=== PATIENT | female | born 1955 | race Caucasian/White ===

== ENCOUNTER 2016-10-22 10:01 | Emergency (ER) | payer BC ==
--- NOTE | 2016-10-22 11:09 | UC ---
Hip/Pelvis Pain - HPI Summary HPI Summary: Fell on the ice this morning landing on knees also has some left hip pain - History Of Current Complaint Chief Complaint: UCLowerExtremity Stated Complaint: FELL-HIP COMPLAINT Time Seen by Provider: 10/22/16 11:02 Hx Obtained From: Patient ?: No Mechanism Of Injury: fall Onset/Duration: Sudden Onset, Lasting Hours, Still Present Timing: Constant Severity Initially: Moderate Severity Currently: Moderate Pain Intensity: 3 Pain Scale Used: 0-10 Numeric Location: Discrete At: - both knees and left hip Character Of Pain: Aching Aggravating Factor(s): Movement Alleviating Factor(s): Rest Associated Signs And Symptoms: Positive: Swelling, Bruising, Knee Pain - Allergies/Home Medications Allergies/Adverse Reactions: Allergies Allergy/AdvReac Type Severity Reaction Status Date / Time No Known Allergies Allergy Verified 06/29/16 08:14 Home Medications: Home Medications Calcium Carbonate CHEW TAB* [Tums*] 500 mg PO QPM 10/22/16 [History Confirmed ] amLODIPine TAB* [Norvasc TAB*] 2 mg PO DAILY 10/22/16 [History Confirmed ] PMH/Surg Hx/FS Hx/Imm Hx Previously Healthy: No Endocrine History Of: Denies: Diabetes Cardiovascular History Of: Reports: Hypertension Denies: Pacemaker/ICD Respiratory History Of: Reports: Bronchitis - LAST TIME 1990 Denies: Asthma GI/ History Of: Denies: Renal Disease Cancer History Of: Denies: Breast Cancer - Surgical History Surgical History: Yes Surgery Procedure, Year, and Place: ,LEFT SHOULDER re-location with screw, right wrist surgery, LEFT HIP, THYROID - Family History Known Family History: Positive: None - Social History Occupation: Employed Full-time Lives: With Family Alcohol Use: None Alcohol Amount: HOLIDAYS Substance Use Type: None Smoking Status (MU): Never Smoked Tobacco Have You Smoked in the Last Year: No - Immunization History Most Recent Influenza Vaccination: 06/2016 Most Recent Tetanus Shot: 2013 Most Recent Pneumonia Vaccination: NEVER Review of Systems Constitutional: Negative Skin: Bruising - knees Eyes: Negative ENT: Negative Respiratory: Negative Cardiovascular: Negative Gastrointestinal: Negative Genitourinary: Negative Motor: Negative Neurovascular: Negative Musculoskeletal: Negative Neurological: Negative Psychological: Negative All Other Systems Reviewed And Are Negative: Yes Physical Exam Triage Information Reviewed: Yes Appearance: Well-Appearing, No Pain Distress, Well-Nourished Vital Signs: Initial Vital Signs Temp 99.1 F 10/22/16 10:45 Pulse 83 10/22/16 10:45 Resp 18 10/22/16 10:45 BP 144/92 10/22/16 10:45 Pulse Ox 97 10/22/16 10:45 Vital Signs Reviewed: Yes Eye Exam: Normal Eyes: Positive: Conjunctiva Clear ENT Exam: Normal ENT: Positive: Normal ENT inspection, Hearing grossly normal. Negative: Nasal congestion, Nasal drainage, Trismus, Muffled/hoarse voice Dental Exam: Normal Neck exam: Normal Neck: Positive: Supple, Nontender, No Lymphadenopathy Respiratory Exam: Normal Respiratory: Positive: Chest non-tender, Lungs clear, Normal breath sounds, No respiratory distress, No accessory muscle use Cardiovascular Exam: Normal Cardiovascular: Positive: RRR, No Murmur, Pulses Normal, Brisk Capillary Refill Musculoskeletal Exam: Normal Musculoskeletal: Positive: Strength Intact, ROM Intact, Edema @ - knees Neurological Exam: Normal Neurological: Positive: Alert, Muscle Tone Normal Psychological Exam: Normal Psychological: Positive: Normal Response To Family Skin: Positive: Other - abrasion on knee (tetnus up to date) Diagnostics - Radiology No standard instances Xray Interpretation: No Acute Changes Radiology Interpretation Completed By: Radiologist Hip Injury Course/Dx - Course Course Of Treatment: rest, ice, ibuprofen, eva wound care follow with Dr. Dawson as needed - Differential Dx/Diagnosis Differential Diagnosis/HQI/PQRI: Contusion, Fracture, Hematoma, Sprain, Strain Provider Diagnoses: Bilateral knee contusions, Left hip pain s/p replacement Discharge - Discharge Plan Condition: Stable Disposition: HOME Patient Education Materials: Osteoarthritis (ED), Contusion in Adults (ED), Abrasion (ED), Ice Pack Application (ED) Referrals: Manjula Dawson MD [Medical Doctor] - If Needed Cameron Kent MD [Primary Care Provider] -
[2016-10-22 11:15] VITALS: BP 135/92
--- NOTE | 2016-10-22 11:55 | RAD ---
HISTORY: Fall, bruising, pain to the left knee and to the right knee COMPARISONS: None VIEWS: 7, Frontal, lateral, and oblique views of the left knee and of the right knee with axial views of both knees FINDINGS: Right: BONE DENSITY: There is diffuse osteopenia. BONES: There is no displaced fracture. JOINTS: There is mild to moderate tricompartmental osteoarthritis. There is no suprapatellar joint effusion or lipohemarthrosis. ALIGNMENT: There is no dislocation. The alignment is anatomic. SOFT TISSUES: Unremarkable. Left: BONE DENSITY: There is diffuse osteopenia. BONES: There is no displaced fracture. JOINTS: There is mild to moderate tricompartmental osteoarthritis. There is no suprapatellar joint effusion or lipohemarthrosis. ALIGNMENT: There is no dislocation. The alignment is anatomic. SOFT TISSUES: Unremarkable. OTHER FINDINGS: None. IMPRESSION: OSTEOPENIA. OSTEOARTHRITIS. NO ACUTE OSSEOUS INJURY BILATERALLY. IF SYMPTOMS PERSIST, RECOMMEND REPEAT IMAGING.
--- NOTE | 2016-10-22 11:57 | RAD ---
HISTORY: Fall, bruising, pain to the left hip COMPARISONS: September 20, 2016 VIEWS: 3, Frontal view of the pelvis with frontal and frog-leg views of the left hip FINDINGS: BONE DENSITY: There is diffuse osteopenia. BONES: The patient is status post left hip arthroplasty. There is no hardware failure or osteolysis. JOINTS: The patient is status post left hip arthroplasty. There is advanced osteoarthritis of the right hip. ALIGNMENT: There is no dislocation. SOFT TISSUES: Unremarkable. OTHER FINDINGS: None. IMPRESSION: STATUS POST LEFT HIP ARTHROPLASTY
== END 2016-10-22 12:10 | disposition home or self-care (01) ==
LOC: UCEAST 10:01
DX: S70.02XA Contusion of left hip, initial encounter (principal); W00.0XXA Fall on same level due to ice and snow, initial encounter; I10 Essential (primary) hypertension
CPT/HCPCS: 99211; G0463

== ENCOUNTER 2017-10-18 07:01 | Inpatient (IN) | payer BC ==
--- NOTE | 2017-10-07 17:28 | HP ---
HISTORY AND PHYSICAL: DATE OF ADMISSION/SURGERY: 10/18/17 DATE OF OFFICE VISIT: 10/07/17 SURGEON: Manjula Dawson MD * (DICTATED BY [facility]) PROCEDURE: Right total hip arthroplasty. CHIEF COMPLAINT: Right hip pain. HISTORY OF PRESENT ILLNESS: Ms. Turk is a 62-year-old female with complaints of right hip pain secondary to end-stage osteoarthritis. She has failed conservative management, elected to proceed with a right total arthroplasty which is scheduled for 10/18/[address] Dawson. PAST MEDICAL HISTORY: Hypertension, high cholesterol. PAST SURGICAL HISTORY: Left shoulder rotator cuff repair, , ORIF of the right wrist, parathyroidectomy, and a left total hip arthroplasty. CURRENT MEDICATIONS: 1. Amlodipine 2.5 mg daily. 2. VESIcare 10 mg daily. 3. Vitamin C. 4. Krill oil. 5. Garlic. 6. Magnesium. 7. Biotin. 8. Hazen. ALLERGIES: None. FAMILY HISTORY: Heart disease, diabetes, and melanoma. SOCIAL HISTORY: She is a 62-year-old female. She lives with her . She does not smoke, use drugs. She uses occasional alcohol. REVIEW OF SYSTEMS: A complete 14-point review of systems was reviewed with the patient and it was all negative or noncontributory. PHYSICAL EXAMINATION GENERAL: She is well-developed, well-nourished, in no acute distress. VITAL SIGNS: She stands 6 feet tall, weighs 190 pounds. Her blood pressure is 138/82, her heart rate 71. HEENT: Normocephalic, atraumatic. NECK: Supple. No palpable lymph nodes. PULMONARY: Lungs are clear to auscultation bilaterally. CARDIO: Regular rate and rhythm. Strong S1 and S2. ABDOMEN: Soft, nontender, nondistended. NEUROLOGIC: She is alert and oriented x3. Cranial nerves II through XII are intact. MUSCULOSKELETAL: Right lower extremity, skin is intact. There are no open wounds or abrasions. She walks with an antalgic-type gait, favoring her right hip. She has decreased internal and external rotation of the right hip. She has 2+ dorsalis pedis pulses, intact sensation, and her lower extremity muscular group strengths are intact at 5/5. ASSESSMENT AND PLAN: Ms. Turk is a 62-year-old female with continued complaints of right hip pain secondary to advanced osteoarthritis. She has failed conservative management and elected to proceed with a right total hip arthroplasty, which is scheduled for 10/18/[address] Dawson discussed the risks and benefits of the surgery at today's visit and all of her questions were answered. Hazen, Colace, and Coumadin were sent to her pharmacy for postoperative pain control and DVT prophylaxis. She will follow up with Dr. Dawson 2 weeks after the surgery. [facility] [id number]/[facility] #: [id number] PINKY
[~2017-10-18 07:01] MED LIST: Buffered Lidocaine 0.9% SYRIN* 5 ML/SYR SYRINGE INTRADERM ONE; DiMENhydriNATE IV* 50 MG/ML VIAL IV PUSH PRN; Famotidine IV* 10 MG/ML 2 ML (20 mg) IV ONE; Gabapentin CAP(*) 300 MG PO ONE; Morphine INJ* 2 MG/ML 1 ML CARPUJECT IV PRN; Naloxone* 0.4 MG/ML 1 ML VIAL IV PRN; PROCHLORPERAZINE INJ 5 MG/ML 2 ML VIAL IV PRN; Scopolamine 1.5 mg* PATCH TRANSDERM ONE; fentaNYL* 50 MCG/ML 2 ML VIAL (100 MCG VIAL) IV PRN
--- OUTSIDE RECORDS SUMMARY | 2017-10-18 07:06 | XMS REPORT ---
:1955 External Reference #:[id number] Author Organization [facility] Address [address] [address] Phone [phone] Care Team Providers Name Role Phone Cameron Kent MD Primary Care Physician Unavailable Payers Type Date Identification Numbers Payment Provider Subscriber Commercial Effective: Policy Number: BS [employer]ets Christopher Kruse 2011 [id number] PayID: [id number] [address] [address] [place] [address] Problems Date Description Provider Status Onset: 07/22/2014 Closed Colles' fracture Fernando West M.D. Active Onset: 07/22/2014 Shoulder joint pain Fernando West M.D. Active Onset: 07/22/2014 Closed anterior dislocation of Fernando West M.D. Active humerus Onset: 07/22/2014 Disorder of shoulder Fernando West M.D. Active Onset: 07/22/2014 Disorder of shoulder Fernando West M.D. Active Onset: 08/19/2014 Closed fracture of distal end of Fernando West M.D. Active radius Onset: 08/19/2014 Fernando West M.D. 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 Active thigh Onset: 09/30/2014 Recurrent dislocation of shoulder Fernando West M.D. Active region Onset: 09/30/2014 Full thickness rotator cuff tear Fernando West M.D. Active Onset: 09/30/2014 Sprain of shoulder and upper arm Fernando West M.D. Active Onset: 09/09/2014 Carbuncle of upper arm and forearm Fernando West M.D. 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 Social History Type Date Description Comments Smoking Patient has never smoked Allergies, Adverse Reactions, Alerts Date Description Reaction Status Severity Comments 06/18/2014 NKDA active Medications Medication Date Status Form Strength Qnty SIG Indications Ordering Provider Hydrocodone-Caden 08/26/ Active Tablets 5-325mg 90tabs 1 or 2 Z96.642 Manjula taminophen 2016 tabs by Christopher Dawson mouth every 4-6 hours as needed for post- op pain Amlodipine 00/ Active 2.5mg Unknown Besylate 0000 Vesicare / Active 10mg Unknown 0000 Vitamin C 00/ Active 1000 Unknown 0000 Krill Oil / Active Capsules 350mg once a day Unknown 0000 Garlic 00/ Active Unknown 0000 Magnesium 00/ Active Tablets 400mg 1 by mouth Unknown 0000 every day Biotin 00/ Active Unknown 0000 Azithromycin 0000/ Active Tablets 250mg Shallish, 0000 MD Cameron Colace /12/ Hx Capsules 100mg 60caps 1-2 tab by Manjula 2015 - mouth Christopher Dawson 09/05/ twice a 2017 day as needed Coumadin 12/ Hx Tablets 2mg 60tabs take 1-3 Manjula 2015 - tabs by Christopher Dawson 08/08/ mouth at 5 2015 at night as directed Percocet 12/ Hx Tablets 5-325mg 90tabs 1-2 tabs Manjula 2015 - by mouth Christopher Dawson 09/05/ q8 as 2017 needed pain Naproxen 04/05/ Hx Tablets 500mg 60tabs 1 tablet Eugenia 2015 - by mouth MARILEE Lopez 08/08/ with food 2015 twice daily. Oxycodone-Aceta 08/26/ Hx Tablets 5-325mg 90tabs one to two Jimbo anson 2014 - tabs by Cheikh, 01/26/ mouth Christopher 2016 every 4-6 hours as needed for pain Fosamax 05/20/ Tablets 70mg Other 2014 - Ordering 2015 Percocet /00/ Hx Unknown - 2013 Ibuprofen / Hx Unknown - 2016 Vitamin D-3 / Hx Unknown 2016 Amoxicillin / Hx Unknown - 2014 Bactrim DS / Hx Unknown - 2015 Vital Signs Date Vital Result Comment 10/07/2017 Height 72 inches 6'0" Weight 192.00 lb BP Systolic 138 mmHg BP Diastolic 82 mmHg Respiratory Rate 15 /min Pain Level 7 BMI (Body Mass Index) 26.0 kg/m2 08/26/2017 Height 72 inches 6'0" Weight 90.00 lb Heart Rate 96 /min BP Systolic 146 mmHg BP Diastolic 80 mmHg BMI (Body Mass Index) 12.2 kg/m2 01/03/2017 Height 72 inches 6'0" Weight 194.00 lb Heart Rate 71 /min BP Systolic 132 mmHg BP Diastolic 83 mmHg Respiratory Rate 16 /min Pain Level 3 BMI (Body Mass Index) 26.3 kg/m2 09/20/2016 Height 72 inches 6'0" Weight 194.00 lb Pain Level 0 BMI (Body Mass Index) 26.3 kg/m2 08/09/2016 Height 72 inches 6'0" Weight 194.00 lb Respiratory Rate 14 /min Body Temperature 98.5 F Pain Level 1 BMI (Body Mass Index) 26.3 kg/m2 07/19/2016 Heart Rate 112 /min BP Systolic 173 mmHg BP Diastolic 101 mmHg Pain Level 3 06/16/2016 Height 69.5 inches 5'9.50" Weight 196.00 lb Heart Rate 86 /min BP Systolic 169 mmHg BP Diastolic 97 mmHg BMI (Body Mass Index) 28.5 kg/m2 04/02/2016 Height 72 inches 6'0" Weight 175.00 lb Pain Level 6 BMI (Body Mass Index) 23.7 kg/m2 02/23/2016 Height 72 inches 6'0" Weight 175.00 lb Heart Rate 93 /min BP Systolic 169 mmHg BP Diastolic 91 mmHg BMI (Body Mass Index) 23.7 kg/m2 02/13/2016 Height 72 inches 6'0" Weight 175.00 lb Heart Rate 60 /min Respiratory Rate 16 /min Pain Level 4 BMI (Body Mass Index) 23.7 kg/m2 01/29/2016 Height 72 inches 6'0" Weight 175.00 lb Pain Level 7 BMI (Body Mass Index) 23.7 kg/m2 04/28/2015 Height 72 inches 6'0" Weight 175.00 lb Pain Level 1 BMI (Body Mass Index) 23.7 kg/m2 03/31/2015 Height 72 inches 6'0" Weight 175.00 lb Pain Level 2 BMI (Body Mass Index) 23.7 kg/m2 02/17/2015 Height 72 inches 6'0" Weight 175.00 lb Pain Level 0 BMI (Body Mass Index) 23.7 kg/m2 12/30/2014 Height 72 inches 6'0" Weight 175.00 lb Pain Level 1 BMI (Body Mass Index) 23.7 kg/m2 12/02/2014 Height 72 inches 6'0" Weight 175.00 lb BP Systolic 130 mmHg BP Diastolic 72 mmHg Pain Level 3 BMI (Body Mass Index) 23.7 kg/m2 11/04/2014 Height 72 inches 6'0" Heart Rate 90 /min BP Systolic 124 mmHg BP Diastolic 80 mmHg 09/30/2014 Height 72 inches 6'0" Heart Rate 109 /min BP Systolic 147 mmHg BP Diastolic 100 mmHg 09/09/2014 Height 72 inches 6'0" Heart Rate 100 /min BP Systolic 175 mmHg BP Diastolic 112 mmHg 08/26/2014 Height 72 inches 6'0" Weight 175.00 lb Heart Rate 79 /min BP Systolic 152 mmHg BP Diastolic 91 mmHg BMI (Body Mass Index) 23.7 kg/m2 08/19/2014 Height 72 inches 6'0" Heart Rate 85 /min BP Systolic 121 mmHg BP Diastolic 89 mmHg 08/12/2014 Height 72 inches 6'0" Heart Rate 83 /min BP Systolic 129 mmHg BP Diastolic 96 mmHg 07/22/2014 Height 72 inches 6'0" Heart Rate 103 /min BP Systolic 155 mmHg BP Diastolic 105 mmHg Pain Level 2 07/08/2014 Height 72 inches 6'0" Heart Rate 96 /min BP Systolic 138 mmHg BP Diastolic 103 mmHg Pain Level 2 06/18/2014 Height 72 inches 6'0" Weight 175.00 lb Heart Rate 87 /min BP Systolic 153 mmHg BP Diastolic 105 mmHg BMI (Body Mass Index) 23.7 kg/m2 Results Test Date Test Result H/L Range Note Urinalysis Profile 06/16/2016 Urine Color Yellow Urine Appearance Clear Urine Specific [place] 1.006 Low 1.010-1.030 Urine pH 6.0 5-9 Urine Urobilinogen Negative Negative Urine Ketones Negative Negative Urine Protein Negative Negative Urine Leukocytes Negative Negative Urine Blood Negative Negative * * Negative 1 Urine Nitrite Negative Negative Urine Bilirubin Negative Negative Urine Glucose Negative Negative Inr/Protime 06/16/2016 Inr 0.93 0.89-1.11 Laboratory test finding 06/16/2016 Partial Thrombo Time 32.6 seconds 26.0 -36.3 PTT CBC No Diff 06/16/2016 White Blood Count 8.6 10^3/uL 3.5-10.8 Red Blood Count 4.77 10^6/uL 4.0-5.4 Hemoglobin 15.4 g/dL 12.0-16.0 Hematocrit 45 % 35-47 Mean Corpuscular Volume 95 fL 80-97 Mean Corpuscular Hemoglobin 32 pg High 27-31 Mean Corpuscular HGB Conc 34 g/dL 31-36 Red Cell Distribution Width 13 % 10.5-15 Platelet Count 283 10^3/uL 150-450 Mean Platelet Volume 8 um3 7.4-10.4 Type & Screen 06/16/2016 Patient Blood Type B Positive Antibody Screen NEGATIVE Comp Metabolic Panel 06/16/2016 Sodium 141 mmol/L 133-145 Potassium 5.2 mmol/L High 3.5-5.0 Chloride 105 mmol/L 101-111 Co2 Carbon Dioxide 28 mmol/L 22-32 Anion Gap 8 mmol/L 2-11 Glucose 85 mg/dL 70-100 Blood Urea Nitrogen 24 mg/dL 6-24 Creatinine 0.87 mg/dL 0.51-0.95 BUN/Creatinine Ratio 27.6 High 8-20 Calcium 10.3 mg/dL 8.6-10.3 Total Protein 7.0 g/dL 6.4-8.9 Albumin 4.7 g/dL 3.2-5.2 Globulin 2.3 g/dL 2-4 Albumin/Globulin Ratio 2.0 1-3 Total Bilirubin 0.40 mg/dL 0.2-1.0 Alkaline Phosphatase 62 U/L 34-104 Alt 16 U/L 7-52 Ast 18 U/L 13-39 Egfr Non- 66.0 >60 Egfr 84.8 >60 2 Urine Culture And 06/16/2016 Urine Culture SEE RESULT BELOW 3 Sensitivities Surgical Pathology 09/17/2014 S RUN DATE: <SEE NOTE> CBC Auto Diff 09/03/2014 White Blood Count 6.2 10^3/uL 4.8-10.8 Red Blood Count 4.77 10^6/uL 4.0-5.4 Hemoglobin 15.7 g/dL 12.0-16.0 Hematocrit 46 % 35-47 Mean Corpuscular Volume 97 fL 80-97 Mean Corpuscular Hemoglobin 33 pg High 27-31 Mean Corpuscular HGB Conc 34 g/dL 31-36 Red Cell Distribution Width 13 % 10.5-15 Platelet Count 272 10^3/uL 150-450 Mean Platelet Volume 7 um3 Low 7.4-10.4 Abs Neutrophils 3.4 10^3/uL 1.5-7.7 Abs Lymphocytes 2.1 10^3/uL 1.0-4.8 Abs Monocytes 0.4 10^3/uL 0-0.8 Abs Eosinophils 0.3 10^3/uL 0-0.6 Abs Basophils 0 10^3/uL 0-0.2 Abs Nucleated RBC 0.01 10^3/uL Granulocyte % 54.7 % 38-83 Lymphocyte % 34.0 % 25-47 Monocyte % 6.5 % 1-9 Eosinophil % 4.0 % 0-6 Basophil % 0.8 % 0-2 Nucleated Red Blood Cells % 0.1 Comp Metabolic Panel 09/03/2014 Sodium 135 mmol/L 133-145 Potassium 4.5 mmol/L 3.5-5.0 Chloride 103 mmol/L 101-111 Co2 Carbon Dioxide 26 mmol/L 22-32 Anion Gap 6 mmol/L 2-11 Glucose 91 mg/dL 70-100 Blood Urea Nitrogen 19 mg/dL 6-24 Creatinine 0.78 mg/dL 0.51-0.95 BUN/Creatinine Ratio 24.4 High 8-20 Calcium 11.0 mg/dL High 8.6-10.3 Total Protein 7.4 g/dL 6.4-8.9 Albumin 4.5 g/dL 3.2-5.2 Globulin 2.9 g/dL 2-4 Albumin/Globulin Ratio 1.6 1-3 Total Bilirubin 0.50 mg/dL 0.2-1.0 Alkaline Phosphatase 64 U/L 34-104 Alt 20 U/L 7-52 Ast 16 U/L 13-39 Egfr Non- 75.3 >60 Egfr 96.9 >60 5 Urinalysis Profile 09/03/2014 Urine Color Yellow Urine Appearance Clear Urine Specific [place] 1.010 1.010-1.030 Urine pH 6.0 5-9 Urine Urobilinogen Negative Negative Urine Ketones Negative Negative Urine Protein Negative Negative Urine Leukocytes Negative Negative Urine Blood Negative Negative * * Negative 6 Urine Nitrite Negative Negative Urine Bilirubin Negative Negative Urine Glucose Negative Negative Urine Culture And 09/03/2014 Urine Culture (SEE NOTE) 7 Sensitivities Xray 07/30/2014 MRI Shoulder W/O <pending> Contrast Left Urine Culture And 06/18/2014 Urine Culture (SEE NOTE) 8 Sensitivities Urinalysis Profile 06/18/2014 Urine Color Yellow Urine Appearance Cloudy Urine Specific [place] 1.018 1.010-1.030 Urine pH 5.0 5-9 Urine Urobilinogen Negative Negative Urine Ketones Negative Negative Urine Protein Negative Negative Urine Leukocytes 2+ Negative Urine Blood Negative Negative * * Negative 9 Urine Nitrite Negative Negative Urine Bilirubin Negative Negative Urine Glucose Negative Negative Urine White Blood Cell 1+(6-10/hpf) Absent Urine Red Blood Cell 1+(3-5/hpf) Absent Urine Bacteria Absent Absent Urine Squamous Epithelial Cell Present Absent CBC No Diff 06/18/2014 White Blood Count 7.2 10^3/uL 4.8-10.8 10 Red Blood Count 4.32 10^6/uL 4.0-5.4 10 Hemoglobin 13.9 g/dL 12.0-16.0 10 Hematocrit 41 % 35-47 10 Mean Corpuscular Volume 95 fL 80-97 10 Mean Corpuscular Hemoglobin 32 pg High 27-31 10 Mean Corpuscular HGB Conc 34 g/dL 31-36 10 Red Cell Distribution Width 13 % 10.5-15 10 Platelet Count 252 10^3/uL 150-450 10 Mean Platelet Volume 7 um3 Low 7.4-10.4 10 1 *Ascorbic acid is present which may interfere with detection of blood. 2 Because ethnic data is not always readily available, this report includes an eGFR for both -Americans and non- Americans. The National Kidney Disease Education Program (NKDEP) does not endorse the use of the MDRD equation for patients that are not between the ages of 18 and 70, are , have extremes of body size, muscle mass, or nutritional status, or are non- or non-. According to the National Kidney Foundation, irrespective of diagnosis, the stage of the disease is based on the level of kidney function: Stage Description GFR(mL/min/1.73 m(2)) 1 Kidney damage with normal or decreased GFR 90 2 Kidney damage with mild decrease in GFR 60-89 3 Moderate decrease in GFR 30-59 4 Severe decrease in GFR 15-29 5 Kidney failure <15 (or dialysis) 3 SEE RESULT BELOW Name: CHRISTOPHER KRUSE : [address]: Manjula Dawson MD Acct: [id number] Unit: [id number] AGE: 61 Location: [facility] Re06/16/16 SEX: F Status: REG REF SPEC: [id number] JEANNINE: 06/16/168986 SUBM DR: Manjula Dawson MD REQ: [id number] RECD: 06/16/167 STATUS: COMP _ SOURCE: URINE SPDESC: ORDERED: Urine Culture Procedure Result Reported Site Urine Culture Final 06/17/16- 1452 ML No Growth (<1,000 CFU/mL) * ML - MAIN LAB (PSC1) . END OF REPORT * ML=Testing performed at Main Lab DEPARTMENT OF PATHOLOGY, [facility] [place] [address], [place] [address] Sabas Cortez M.D. Director [facility] # [id number] RUN DATE: 09/25/14 [facility] LAB LIVE PAGE 1 RUN TIME: 1402 [facility] [employer] [place], [place] [address] Specimen Inquiry Name: CHRISTOPHER KRUSE : [address]: Fernando West MD Acct: [id number] Unit: [id number] AGE: 59 Location: [facility] Re09/17/14 SEX: F Status: REG REF SPEC: [id number] JEANNINE: 09/17/14-[address]: Fernando West MD REQ: [id number] RECD: 09/18/1456 STATUS: SOUT _ ORDERED: Decal, LEVEL III FINAL DIAGNOSIS Shoulder, left, excision: -- Benign synovial tissue fragments, skeletal muscle, and fibroconnective tissue with mild chronic inflammation. --Bone and cartilage fragment with severe degenerative osteoarthritic changes. CLINICAL HISTORY Massive left RTC tear, dislocation pain, loss of motion. PRE-OPERATIVE DIAGNOSIS Massive left rotator cuff tear with biceps dislocation. GROSS DESCRIPTION The specimen is received in formalin labeled, Acromion, and consists of a 1.8 x 1.3 x 0.7 cm aggregate of multiple cho carreon irregular bone fragments. Received separately in the same container is a 2.3 x 1.4 x 0.3 cm cho-ventura irregular rubbery soft tissue fragment. Bore Mill Operator sections are submitted in cassettes A and B to include bone following decalcification in cassette A and soft tissue in cassette B. MICROSCOPIC DESCRIPTION Signed (signature on file) Sabas Cortez MD 1402 END OF REPORT * ML=Testing performed at Main Lab DEPARTMENT OF PATHOLOGY, [address] [place] [address] Sabas Cortez M.D. Director [facility] # [id number] 5 Because ethnic data is not always readily available, this report includes an eGFR for both -Americans and non- Americans. The National Kidney Disease Education Program (NKDEP) does not endorse the use of the MDRD equation for patients that are not between the ages of 18 and 70, are , have extremes of body size, muscle mass, or nutritional status, or are non- or non-. According to the National Kidney Foundation, irrespective of diagnosis, the stage of the disease is based on the level of kidney function: Stage Description GFR(mL/min/1.73 m(2)) 1 Kidney damage with normal or decreased GFR 90 2 Kidney damage with mild decrease in GFR 60-89 3 Moderate decrease in GFR 30-59 4 Severe decrease in GFR 15-29 5 Kidney failure <15 (or dialysis) 6 *Ascorbic acid is present which may interfere with detection of blood. 7 RUN DATE: 09/05/14 [facility] LAB LIVE PAGE 1 RUN TIME: [address] [place] [address] Specimen Inquiry Name: CHRISTOPHER KRUSE : [address]: Fernando West MD Acct: [id number] Unit: [id number] AGE: 59 Location: LAB Re09/03/14 SEX: F Status: REG REF SPEC: [id number] JEANNINE: 09/03/[address]: Fernando West MD REQ: [id number] RECD: 09/03/14 STATUS: COMP _ SOURCE: URINE SPDESC: ORDERED: Urine Culture Procedure Result Verified Site Urine Culture Final 09/05/14- 831 ML Organism 1 NORMAL ROMANA [place] Count 10-25,000 (Moderate) CFU/ML END OF REPORT * ML=Testing performed at Main Lab DEPARTMENT OF PATHOLOGY, [address] [place] [address] Sabas Cortez M.D. Director [facility] # [id number] RUN DATE: 06/20/14 [facility] LAB LIVE PAGE 1 RUN TIME: [address] [place], [place] [address] Specimen Inquiry Name: CHRISTOPHER KRUSE : [address]: Fernando West MD Acct: [id number] Unit: [id number] AGE: 59 Location: [facility] Re06/18/14 SEX: F Status: REG REF SPEC: [id number] JEANNINE: 06/18/14-[address]: Fernando West MD REQ: [id number] RECD: 06/18/14 STATUS: COMP _ SOURCE: URINE SPDESC: ORDERED: Urine Culture Procedure Result Verified Site Urine Culture Final 06/20/14- 1228 ML Organism 1 NORMAL ROMANA [place] Count 75-100,000 (Many) CFU/ML END OF REPORT * ML=Testing performed at Main Lab DEPARTMENT OF PATHOLOGY, [address] [place] [address] Sabas Cortez M.D. Director [facility] # [id number] 9 *Ascorbic acid is present which may interfere with detection of blood. 10 SDS 06/19/14 Procedures Date CPT Code Description Status 06/29/2016 71129 THR Total Hip Replacement Completed 06/29/2016 22152 THR Total Hip Replacement Completed 06/16/2016 94116 EKG, Interpretation Only Completed 01/16/2016 56051 Parathyroidectomy Or Exploration Of Parathyroid Completed 09/17/2014 53371 Tenodesis Biceps Long Tendon Completed 09/17/2014 92241 Reconsn Complete Shoulder Rotator Cugg Avulsion,Chronic Completed 08/23/2014 89904 Needle Electromyography Each Extremity W/Related Completed Paraspinal Areas 07/22/2014 59350 Rad Exam; Wrist Limited, 2 Views Completed 07/22/2014 48640 Rad Shoulder Comp, Min. 2 Views Completed 07/08/2014 79781 Rad Exam; Wrist Limited, 2 Views Completed 07/08/2014 97613 Short Arm Cast Application Completed 06/26/2014 68139 Open TX Distal Radial Intra-Articular FX W Fixation Of Completed 3 Or More 06/26/2014 40041 Open TX Distal Radial Intra-Articular FX W Fixation Of Completed 3 Or More 06/15/2014 55376 Closed Treatment Distal Radial FX W/Manipulation Completed 06/15/2014 84732 Dislocation Shoulder W/Anesthesia Completed Encounters Type Date Location Provider CPT E/M Dx Office Visit 08/26/2017 [facility] Manjula Dawson M.D. 40854 Z96.642 2[facility] M25.551 M16.11 M54.5 Office Visit 01/03/2017 2:45p [facility] Manjula Dawson M.D. 57761 Z96.642 [facility] Z47.1 M16.12 M25.552 Office Visit 04/02/2016 8:15a [facility] Of Manjula Dawson M.D. 50865 M16.0 [facility] M25.552 Office Visit 02/23/2016 8:00a [facility] Manjula Dawson M.D. 47315 M16.0 [facility] M25.551 M25.552 Office Visit 02/13/2016 1:45p [facility] [place] [address] M75.122 [facility] M19.012 Office Visit 01/29/2016 11:00a [facility] [place] [address] M75.122 [facility] M19.012 Office Visit 04/28/2015 3:15p [facility] Fernando West, 93329 727.61 [facility] MKarolina 719.41 Office Visit 03/31/2015 10:30a [facility] Fernando West, 91634 715.15 [facility] MKarolina 719.45 840.8 727.61 813.41 718.31 719.41 955.0 Office Visit 02/17/2015 10:30a [facility] Fernando Reji West, 45102 715.15 C.M.A. MLittleDLittle 719.45 840.8 727.61 813.41 Office Visit 12/30/2014 8:30a [facility] Fernando Reji West, 29277 727.61 C.M.A. MKarolina 840.8 718.31 719.45 715.15 Office Visit 09/09/2014 9:30a [facility] Fernando West, 14690 726.2 C.Kayla White 955.0 831.01 680.3 Office Visit 06/15/2014 9:53a [facility] Ad[facility] Rachel, [address]70[address] 794.09 Services Of Jose White 354.3 Office Visit 06/15/2014 7:00a [facility] Fernando West, 88360 813.41 C.Kayla White 718.21 719.41 831.01 Plan of Care Future Appointment(s):10/18/2017 9:30 am - GEO [place]ridge at [facility]10/18/2017 9:30 am - Bennett Lopez PA-C at [facility]10/18/2017 9:30 am - GEO [place] at [facility]10/18/2017 9:30 am - Manjula Dawson M.D. at [facility]10/28/2017 8:15 am - Manjula Dawson M.D. at [facility]10/07/2017 - Manjula Dawson M.D.M25.551 Pain in right hipFollow up:Follow up: 2 weeks after cpqhkmtN62.11 Unilateral primary osteoarthritis, right hip
--- OUTSIDE RECORDS SUMMARY | 2017-10-18 07:07 | XMS REPORT ---
:1955 External Reference #:[id number] Author Organization [facility] Address [address] [place] [address] Phone [phone] Care Team Providers Name Role Phone Kyler Kent MD Care Team Information Biomedical Equipment Tech Unavailable Kyler Kent MD Primary Care Physician Unavailable Payers Type Date Identification Numbers Payment Provider Subscriber Commercial Effective: Policy Number: [employer] Fink 2011 [id number] Group Number: [id number] [address] [id number] PayID: [id number] [place] [address] Problems Date Description Provider Status Onset: 05/21/2014 Backache Kyler Kent M.D. Active Onset: 05/21/2014 Arthralgia of the pelvic region Kyler Kent M.D. Active and thigh Onset: 07/02/2014 Osteoporosis Kyler Kent M.D. Active Onset: 08/27/2014 Shoulder joint pain Kyler Kent M.D. Active Onset: 10/03/2014 Essential hypertension Kyler Kent M.D. Active Onset: 10/04/2017 Acute bronchitis Kyler Kent M.D. Active Onset: 10/04/2017 Neck pain Kyler Kent M.D. Active Onset: 04/21/2017 Disorder of bone Kyler Kent M.D. Active Onset: 10/21/2016 Hyperlipidemia Kyler Kent M.D. Active Onset: 06/22/2016 Encounter for other preprocedural Kyler Kent M.D. Active examination Onset: 06/22/2016 Localized, primary osteoarthritis Kyler Kent M.D. Active of the pelvic region and thigh Onset: 08/14/2014 Acute upper respiratory infection Diaz Camp M.D. Resolved Resolved: 06/22/2016 Onset: 07/22/2015 Hypercalcemia Kyler Kent M.D. Resolved Resolved: 06/22/2016 Onset: 04/01/2016 Urgent desire to urinate Kyler Kent M.D. Resolved Resolved: 06/22/2016 Onset: 04/01/2016 Mixed hyperlipidemia Kyler Kent M.D. 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 2018 - tablets Shallish, 10/10/ by mouth M.D. 2017 on day 1 then 1 tablet on days 2 through 5 Amlodipine 09/11/ Active Tablets 2.5mg 90tabs take 1 Kyler F. Besylate 2014 tablet by Shallish, mouth M.D. every day Vitamin D3 High 07/02/ Active Capsules 1000Unit 90caps 1 by Kyler F. Potency 2014 mouth Shallish, every day M.D. Black Cohosh // Active Capsules 1 po qd Unknown 0000 Vitamin C / Active Tablets 1000mg 1 po qd Unknown 0000 Biotin / Active Tablets 5000mcg 1 po qd Unknown 0000 Krill Oil / Active Capsules 1 po qd Unknown 0000 Acetaminophen / Active Tablets 500mg 2 tablet Unknown 0000 by mouth every 6 hours as needed pain Magnesium 00/ Active Capsules 400mg 1 by Unknown 0000 mouth every day Vesicare / Active Tablets 10mg 1 by Unknown 0000 mouth every day Naproxen / Active Tablets 500mg 1 by Unknown 0000 mouth twice a day with food Hydrocodone-Caden / Active Tablets 10-325mg 1 tab by Unknown taminophen 0000 mouth every 8 hours as needed Tramadol HCL 05/18/ Hx Tablets 50mg 45tabs 1 by Kyler Rodney 2016 - mouth Shallish, 10/04/ every 6 M.D. 2018 hours as needed Sulfamethoxazol 09/11/ Hx Tablets 800-160mg 1 by e/Trimethoprim 2015 - mouth Medicine [facility] 10/03/ twice a [facility] 2014 day [facility] Amoxicillin 08/14/ Hx Capsules 500mg 14caps twice a Diaz Richter 2013 - day x 7 Breiman, 08/27/ days M.D. 2013 Alendronate 07/02/ Hx Tablets 70mg 12tabs 1 by Kyler Rodney Sodium 2013 - mouth Shallish, 06/22/ every M.D. 2016 week Cipro 01/26/ Hx Tabs 500mg 20tabs 1 PO bid [place] 2001 - Sydnee, 02/08/ M.D. 2001 Lomotil 01/18/ Hx 2.5mg 20unit 2 PO [place] 2001 - s Stat, Sydnee, 01/28/ Then 1 PO M.D. 2001 With Each Loose BM Keflex 08/30/ Hx 250mg 28unit 1 PO qid Diaz Richter 1996 - s Brearn, 05/14/ M.DLittle 1997 Amoxicillin 06/29/ Hx Tabs 250mg 21tabs 1 PO tid Kyler oRdney 1996 - Shallish, 07/06/ M.D. 1996 Multivitamins / Hx Capsules 1 po qd Unknown 0000 - 2016 Ibuprofen / Hx Tablets 200mg 3 po qam Unknown 0000 - and 2 po 08/14/ qpm 2013 Oxycodone-Aceta / Hx Tablets 5-325mg 1 po Unknown minophen 0000 - q6hrs orn 2014 Immunizations CPT Code Status Date Vaccine Lot # [id number] Given 04/21/2017 Tdap Tetanus, W Pertussis 28802 Given 06/18/2016 Influenza Vac, Quadriv[place], [place] [id number] Given 07/29/2015 Influenza Vac, [place]riv[place], [place] [address] Given 08/27/2014 Zostivax [id number] Given 05/26/2013 DO Not Use Split Influenza Virus Vaccine Vital Signs Date Vital Result Comment 10/04/2017 BP Systolic 142 mmHg BP Diastolic 84 mmHg Heart Rate 124 /min Body Temperature 99.1 F Respiratory Rate 18 /min Height 70 inches 5'10" measured 05/21/14 Weight 192.50 lb BMI (Body Mass Index) 27.6 kg/m2 04/21/2017 BP Systolic 124 mmHg BP Diastolic 80 mmHg Heart Rate 84 /min Body Temperature 97.9 F Respiratory Rate 16 /min Height 70 inches 5'10" measured 05/21/14 Weight 196.50 lb BMI (Body Mass Index) 28.2 kg/m2 10/21/2016 BP Systolic 122 mmHg BP Diastolic 76 mmHg Heart Rate 84 /min Body Temperature 98.2 F Respiratory Rate 16 /min Height 70 inches 5'10" measured 05/21/14 Weight 197.00 lb BMI (Body Mass Index) 28.3 kg/m2 06/22/2016 BP Systolic 140 mmHg BP Diastolic 80 mmHg Heart Rate 70 /min Body Temperature 98.1 F Respiratory Rate 20 /min Height 70 inches 5'10" measured 05/21/14 Weight 195.38 lb BMI (Body Mass Index) 28.0 kg/m2 04/01/2016 BP Systolic 120 mmHg BP Diastolic 72 mmHg Heart Rate 88 /min Body Temperature 98.0 F Respiratory Rate 18 /min Height 70 inches 5'10" measured 05/21/14 Weight 192.00 lb BMI (Body Mass Index) 27.5 kg/m2 12/25/2015 BP Systolic 128 mmHg BP Diastolic 88 mmHg Heart Rate 64 /min Body Temperature 98.2 F Respiratory Rate 15 /min Height 70 inches 5'10" measured 05/21/14 Weight 191.12 lb BMI (Body Mass Index) 27.4 kg/m2 10/23/2015 BP Systolic 124 mmHg BP Diastolic 80 mmHg Heart Rate 84 /min Body Temperature 97.7 F Respiratory Rate 16 /min Height 70 inches 5'10" measured 05/21/14 Weight 190.00 lb BMI (Body Mass Index) 27.3 kg/m2 02/27/2015 BP Systolic 120 mmHg BP Diastolic 78 mmHg Heart Rate 90 /min Body Temperature 99.5 F Respiratory Rate 16 /min Height 70 inches 5'10" measured 05/21/14 Weight 176.50 lb BMI (Body Mass Index) 25.3 kg/m2 10/03/2014 BP Systolic 130 mmHg BP Diastolic 84 mmHg Heart Rate 84 /min Body Temperature 97.5 F Respiratory Rate 16 /min Height 70 inches 5'10" measured 05/21/14 Weight 177.00 lb BMI (Body Mass Index) 25.4 kg/m2 09/11/2014 BP Systolic 158 mmHg BP Diastolic 90 mmHg Heart Rate 102 /min Body Temperature 98.5 F Respiratory Rate 16 /min Height 70 inches 5'10" measured 05/21/14 Weight 177.38 lb BMI (Body Mass Index) 25.4 kg/m2 08/27/2014 BP Systolic 130 mmHg BP Diastolic 90 mmHg Heart Rate 88 /min Body Temperature 98.2 F Respiratory Rate 18 /min Height 70 inches 5'10" measured 05/21/14 Weight 178.00 lb BMI (Body Mass Index) 25.5 kg/m2 08/14/2014 BP Systolic 162 mmHg BP Diastolic 100 mmHg Heart Rate 120 /min Body Temperature 99.2 F Respiratory Rate 16 /min Height 70 inches 5'10" measured 05/21/14 Weight 179.00 lb BMI (Body Mass Index) 25.7 kg/m2 07/02/2014 BP Systolic 140 mmHg BP Diastolic 80 mmHg Heart Rate 84 /min Body Temperature 98.3 F Respiratory Rate 16 /min Height 70 inches 5'10" measured 05/21/14 Weight 176.00 lb BMI (Body Mass Index) 25.3 kg/m2 05/21/2014 BP Systolic 164 mmHg BP Diastolic 94 mmHg Heart Rate 90 /min Body Temperature 98.1 F Respiratory Rate 16 /min Height 70 inches 5'10" measured 05/21/14 Weight 179.00 lb BMI (Body Mass Index) 25.7 kg/m2 01/18/2002 BP Systolic 110 mmHg BP Diastolic 70 mmHg Body Temperature 98.6 F Height 72 inches 6'0" Weight 178.00 lb BMI (Body Mass Index) 24.1 kg/m2 05/14/1998 BP Systolic 122 mmHg Ra LG Cuff BP Diastolic 72 mmHg Ra LG Cuff Heart Rate 80 /min Reg Body Temperature 99.4 F Height 72 inches 6'0" Weight 176.00 lb Right Visual Acuity Distance 20/20 With Glasses Left Visual Acuity Distance 20/20 Color Passed 08/30/1997 Body Temperature 98.0 F Height 72.00 inches 6'0" Weight 174.00 lb 06/29/1997 Body Temperature 98.2 F Results Test Date Test Result H/L Range Note Lipid Profile 04/21/2017 Cholesterol 251 mg/dL High 120-200 1 Triglycerides 144 mg/dL 30-200 HDL Cholesterol 64 mg/dL 30-85 LDL (Calculated) 158 CALC High 0-129 VLDL Cholesterol 29 mg/dL 0-50 HDL Risk Factor 3.9 CALC 0.0-4.4 Comprehensive Metabolic Prof 04/21/2017 Sodium 143 mEq/L 134-149 Potassium 5.2 mEq/L 3.6-5.5 Chloride 102 mEq/L 94-112 Carbon Dioxide 26 mEq/L 21-32 Glucose 100 mg/dL 70-105 BUN 21 mg/dL 6-26 Creatinine 0.8 mg/dL 0.6-1.4 BUN/Creat Ratio 26.3 CALC 8.0-36.0 Calcium 9.9 mg/dL 8.6-10.2 Total Protein 7.3 g/dL 6.4-8.3 Albumin 4.6 g/dL 3.8-5.5 Globulin 2.7 g/dL 2.0-4.8 A/G Ratio 1.7 CALC 0.6-2.3 Alk. Phosphatase 68 U/L 30-110 Alt (SGPT) 19 U/L 7-35 Ast (Sgot) 18 U/L 5-34 Total Bilirubin 0.4 mg/dL 0.2-1.3 GFR Non- >60 ml/min/1.73m^ >=60 GFR >60 ml/min/1.73m^ >=60 Laboratory test finding 04/21/2017 TSH 1.95 mIU/L 0.50-6.00 CK 114 U/L 26-140 Complete Blood Count 04/21/2017 WBC 7.1 x10^3/UL 3.6-9.6 RBC 4.87 x10^6/UL 3.90-5.70 HGB 15.9 g/dL 12.1-17.2 HCT 46 % 36-50 MCV 95.0 fL 82.2-97.4 MCH 32.7 pg 27.6-33.3 MCHC 34.5 g/dL 33.0-35.5 RDW 13.4 % 11.6-13.7 PLT 293 x10^3/UL 150-400 MPV 6.7 fL Low 7.4-10.4 Gran # 5.2 x10^3/UL 1.5-7.2 Lymph# 1.6 x10^3/UL 0.7-4.9 [place]# 0.3 x10^3/UL 0.1-0.9 Gran % 72.0 % 42.2-75.2 Lymph % 23.7 % 20.5-51.1 [place]% 4.3 % 1.7-9.3 Comprehensive Metabolic Prof 10/21/2016 Sodium 143 mEq/L 134-149 Potassium 4.7 mEq/L 3.6-5.5 Chloride 107 mEq/L 94-112 Carbon Dioxide 29 mEq/L 21-32 Glucose 93 mg/dL 70-105 BUN 21 mg/dL 6-26 Creatinine 0.7 mg/dL 0.6-1.4 BUN/Creat Ratio 30.0 CALC 8.0-36.0 Calcium 9.8 mg/dL 8.6-10.2 Total Protein 7.5 g/dL 6.4-8.3 Albumin 4.7 g/dL 3.8-5.5 Globulin 2.8 g/dL 2.0-4.8 A/G Ratio 1.7 CALC 0.6-2.3 Alk. Phosphatase 73 U/L 30-110 Alt (SGPT) 26 U/L 7-35 Ast (Sgot) 23 U/L 5-34 Total Bilirubin 0.4 mg/dL 0.2-1.3 GFR Non- >60 ml/min/1.73m^ >=60 GFR >60 ml/min/1.73m^ >=60 Lipid Profile 10/21/2016 Cholesterol 273 mg/dL High 120-200 Triglycerides 134 mg/dL 30-200 HDL Cholesterol 57 mg/dL 30-85 LDL (Calculated) 189 CALC High 0-129 VLDL Cholesterol 27 mg/dL 0-50 HDL Risk Factor 4.8 CALC High 0.0-4.4 Complete Blood Count 10/21/2016 WBC 6.5 x10^3/UL 3.6-9.6 RBC 5.06 x10^6/UL 3.90-5.70 HGB 15.6 g/dL 12.1-17.2 HCT 47 % 36-50 MCV 93.0 fL 82.2-97.4 MCH 30.9 pg 27.6-33.3 MCHC 33.1 g/dL 33.0-35.5 RDW 14.4 % High 11.6-13.7 PLT 307 x10^3/UL 150-400 MPV 7.4 fL 7.4-10.4 Gran # 4.6 x10^3/UL 1.5-7.2 Lymph# 1.7 x10^3/UL 0.7-4.9 [place]# 0.2 x10^3/UL 0.1-0.9 Gran % 68.9 % 42.2-75.2 Lymph % 26.8 % 20.5-51.1 [place]% 4.3 % 1.7-9.3 Laboratory test finding 10/21/2016 Free T4 1.04 ng/dL 0.75-1.54 TSH 2.03 mIU/L 0.50-6.00 Laboratory test 09/29/2016 Urine Culture And SEE RESULT BELOW 2, 3 finding Sensitivities Age 1006/22/2016 Age 30-65 Diagn See Comment: 4 Adeq See Comment: 5 [email or web address] See Comment: 6 Perfor See Comment: 7 QC Rev See Comment: 8 Comm . Note See Comment: 9 Iglbp See Comment: 10 HPV Aptima Negative Negative 11 Laboratory test finding 06/22/2016 PDF [id number] SEE IMAGE Comprehensive Metabolic Prof 04/01/2016 Sodium 144 mEq/L 134-149 Potassium 4.8 mEq/L 3.6-5.5 Chloride 108 mEq/L 94-112 Carbon Dioxide 27 mEq/L 21-32 Glucose 81 mg/dL 70-105 BUN 25 mg/dL 6-26 Creatinine 0.8 mg/dL 0.6-1.4 BUN/Creat Ratio 31.3 CALC 8.0-36.0 Calcium 9.9 mg/dL 8.6-10.2 Total Protein 7.3 g/dL 6.4-8.3 Albumin 4.7 g/dL 3.8-5.5 Globulin 2.6 g/dL 2.0-4.8 A/G Ratio 1.8 CALC 0.6-2.3 Alk. Phosphatase 60 U/L 30-110 Alt (SGPT) 23 U/L 7-35 Ast (Sgot) 23 U/L 5-34 Total Bilirubin 0.4 mg/dL 0.2-1.3 GFR Non- >60 ml/min/1.73m^ >=60 GFR >60 ml/min/1.73m^ >=60 Urine Culture Routine 04/01/2016 Urine Culture, Routine Final report 12 , 13 Result 1 No growth 12, 14 CBC Electronic ([facility]) 04/01/2016 WBC 6.8 3.6-9.6 RBC 4.65 3.90-5.70 Hemoglobin (Fma/CMC/CTX) 15.5 g/dL 12.1 - 17.2 Hematocrit (a/CMC/CTX) 45.4 % 36.1 - 50.3 Platelets 285 10^3/ul 150-400 Lymph% 26.8 % 17.0-48.0 Mixed% 3.4 Neutrophils % 69.8 Mean Corpuscular Vol 98 High 82.2-97.4 Mean Corpuscular Hemoglobin 33.3 27.6-33.3 Mean Corpuscular Hemo Concen 34.0 32.0-36.0 RDW 13.43 11.6-13.7 Mean Platelet Volume 6.2 5.5-11.0 Ua - Micro ([facility]) 04/01/2016 Appearance clear Color yellow Glucose, Urine (a/CMC/CTX) neg Bilirubin neg Ketones neg SP Grav 1.020 Blood neg PH 6.5 Protein neg Urobil 0.2 Nitrite neg Leukocytes (a/CMC/Centrex) trace Hyaline - /Lpf Granular - /Lpf WBC (a,Centrex) 1-3 RBC - Mucus (Fma/CBC/Centrex) - /Lpf Epith occass /Lpf Bacteria trace /Hpf Amorphous (a/CMC/Centrex) - /Lpf Crystals, Fluid (a/CMC/CTX) - Z#Comments - Lipid Profile 04/01/2016 Cholesterol 282 mg/dL High 120-200 Triglycerides 198 mg/dL 30-200 HDL Cholesterol 62 mg/dL 30-85 LDL (Calculated) 180 CALC High 0-129 VLDL Cholesterol 40 mg/dL 0-50 HDL Risk Factor 4.5 CALC High 0.0-4.4 Pthi 01/16/2016 PTH Intact 1.4 pmol/L 1.3-9.3 Calcium (PTH Intact) 9.1 mg/dL 8.6-10.3 Laboratory test 01/16/2016 PTH Intact < 6.0 pmol/L Low 6.0-9.3 finding Intraoperative Laboratory test 01/16/2016 PTH Intact 11.6 pmol/L High 6.0-9.3 finding Intraoperative Laboratory test 12/29/2015 Blood Urea Nitrogen BUN 28 mg/dL High 6-24 finding Creatinine 12/29/2015 Creatinine 0.77 mg/dL 0.51-0.95 Egfr Non- 76.2 >60 Egfr 98.0 >60 15 Comprehensive Metabolic Prof 10/23/2015 Sodium 136 mEq/L 134-149 Potassium 4.8 mEq/L 3.6-5.5 Chloride 96 mEq/L 94-112 Carbon Dioxide 28 mEq/L 21-32 Glucose 95 mg/dL 70-105 BUN 22 mg/dL 6-26 Creatinine 0.7 mg/dL 0.6-1.4 BUN/Creat Ratio 31.4 CALC 8.0-36.0 Calcium 10.5 mg/dL High 8.6-10.2 16 Total Protein 7.9 g/dL 6.4-8.3 Albumin 4.8 g/dL 3.8-5.5 Globulin 3.1 g/dL 2.0-4.8 A/G Ratio 1.5 CALC 0.6-2.3 Alk. Phosphatase 66 U/L 30-110 Alt (SGPT) 22 U/L 7-35 Ast (Sgot) 16 U/L 5-34 Total Bilirubin 0.5 mg/dL 0.2-1.3 GFR Non- >60 ml/min/1.73m^ >=60 GFR >60 ml/min/1.73m^ >=60 Complete Blood Count 10/23/2015 WBC 8.1 x10^3/UL 3.6-9.6 RBC 4.81 x10^6/UL 3.90-5.70 HGB 16.0 g/dL 12.1-17.2 HCT 46 % 36-50 MCV 96.0 fL 82.2-97.4 MCH 33.2 pg 27.6-33.3 MCHC 34.5 g/dL 33.0-35.5 RDW 12.6 % 11.6-13.7 PLT 291 x10^3/UL 150-400 MPV 7.4 fL 7.4-10.4 Gran # 6.3 x10^3/UL 1.5-7.2 Lymph# 1.5 x10^3/UL 0.7-4.9 [place]# 0.3 x10^3/UL 0.1-0.9 Gran % 77.6 % High 42.2-75.2 Lymph % 18.6 % Low 20.5-51.1 [place]% 3.8 % 1.7-9.3 Lipid Profile 10/23/2015 Cholesterol 262 mg/dL High 120-200 Triglycerides 118 mg/dL 30-200 HDL Cholesterol 58 mg/dL 30-85 LDL (Calculated) 180 CALC High 0-129 VLDL Cholesterol 24 mg/dL 0-50 HDL Risk Factor 4.5 CALC High 0.0-4.4 Laboratory test finding 10/23/2015 TSH 2.27 mIU/L 0.50-6.00 Free T4 1.28 ng/dL 0.75-1.54 PTH Intact & CA Ser 06/24/2015 Calcium, Serum 11.4 mg/dL High 8.7- 10.3 17, 18 & Plasma PTH, Intact 99 pg/mL High 15-65 17 Intact PTH See Comment: 17, 19 Comprehensive Metabolic Prof 04/30/2015 Sodium 140 mEq/L 134-149 Potassium 4.9 mEq/L 3.6-5.5 Chloride 104 mEq/L 94-112 Carbon Dioxide 28 mEq/L 21-32 Glucose 68 mg/dL Low 70-105 20 BUN 25 mg/dL 6-26 Creatinine 0.8 mg/dL 0.6-1.4 BUN/Creat Ratio 31.3 CALC 8.0-36.0 Calcium 11.1 mg/dL High 8.6-10.2 21 Total Protein 7.4 g/dL 6.4-8.3 Albumin 4.6 g/dL 3.8-5.5 Globulin 2.8 g/dL 2.0-4.8 A/G Ratio 1.6 CALC 0.6-2.3 Alk. Phosphatase 59 U/L 30-110 Alt (SGPT) 21 U/L 7-35 Ast (Sgot) 19 U/L 5-34 Total Bilirubin 0.3 mg/dL 0.2-1.3 GFR Non- >60 ml/min/1.73m^ >=60 GFR >60 ml/min/1.73m^ >=60 Lipid Profile 04/30/2015 Cholesterol 246 mg/dL High 120-200 Triglycerides 103 mg/dL 30-200 HDL Cholesterol 63 mg/dL 30-85 LDL (Calculated) 162 CALC High 0-129 VLDL Cholesterol 21 mg/dL 0-50 HDL Risk Factor 3.9 CALC 0.0-4.4 Complete Blood Count 04/30/2015 WBC 4.9 x10^3/UL 3.6-9.6 RBC 4.54 x10^6/UL 3.90-5.70 HGB 15.1 g/dL 12.1-17.2 HCT 45 % 36-50 MCV 98.0 fL High 82.2-97.4 MCH 33.3 pg 27.6-33.3 MCHC 33.8 g/dL 33.0-35.5 RDW 12.8 % 11.6-13.7 PLT 290 x10^3/UL 150-400 MPV 6.6 fL Low 7.4-10.4 Gran # 2.5 x10^3/UL 1.5-7.2 Lymph# 2.1 x10^3/UL 0.7-4.9 [place]# 0.3 x10^3/UL 0.1-0.9 Gran % 47.4 % 42.2-75.2 Lymph % 45.2 % 20.5-51.1 [place]% 7.4 % 1.7-9.3 Laboratory test finding 04/30/2015 Free T4 1.29 ng/dL 0.75-1.54 22 TSH 2.17 mIU/L 0.50-6.00 Laboratory test 03/18/2015 Surgical Pathology SEE RESULT BELOW 23 finding Laboratory test 06/15/2014 Inr 0.98 0.85-1.06 finding CBC Auto Diff 06/15/2014 White Blood Count 13.5 10^3/uL High 4.8-10.8 Red Blood Count 4.50 10^6/uL 4.0-5.4 Hemoglobin 14.6 g/dL 12.0-16.0 Hematocrit 43 % 35-47 Mean Corpuscular Volume 95 fL 80-97 Mean Corpuscular Hemoglobin 32 pg High 27-31 Mean Corpuscular HGB Conc 34 g/dL 31-36 Red Cell Distribution Width 13 % 10.5-15 Platelet Count 315 10^3/uL 150-450 Mean Platelet Volume 8 um3 7.4-10.4 Abs Neutrophils 9.7 10^3/uL High 1.5-7.7 Abs Lymphocytes 2.9 10^3/uL 1.0-4.8 Abs Monocytes 0.5 10^3/uL 0-0.8 Abs Eosinophils 0.3 10^3/uL 0-0.6 Abs Basophils 0.1 10^3/uL 0-0.2 Abs Nucleated RBC 0.01 10^3/uL Granulocyte % 72.0 % 38-83 Lymphocyte % 21.6 % Low 25-47 Monocyte % 3.7 % 1-9 Eosinophil % 2.2 % 0-6 Basophil % 0.5 % 0-2 Nucleated Red Blood Cells % 0 Comp Metabolic Panel 06/15/2014 Sodium 138 mmol/L 133-145 Potassium 3.8 mmol/L 3.7-5.6 Chloride 107 mmol/L 101-111 Co2 Carbon Dioxide 23 mmol/L 22-32 Anion Gap 8 mmol/L 2-11 Glucose 134 mg/dL High 70-100 Blood Urea Nitrogen 24 mg/dL 6-24 Creatinine 0.76 mg/dL 0.51-0.95 BUN/Creatinine Ratio 31.6 High 8-20 Calcium 10.3 mg/dL 8.6-10.3 Total Protein 6.9 g/dL 6.4-8.9 Albumin 4.4 g/dL 3.2-5.2 Globulin 2.5 g/dL 2-4 Albumin/Globulin Ratio 1.8 1-3 Total Bilirubin 0.40 mg/dL 0.2-1.0 Alkaline Phosphatase 74 U/L 34-104 Alt 20 U/L 7-52 Ast 20 U/L 13-39 Egfr Non- 77.6 >60 Egfr 99.8 >60 24 Laboratory test finding 06/15/2014 Troponin I 0.00 ng/mL <0.03 25 TSH (Thyroid Stimulating Horm) 2.24 IU/mL 0.34-5.60 Complete Blood Count 05/28/2014 WBC 5.3 x10^3/UL 3.6-9.6 RBC 4.70 x10^6/UL 3.90-5.70 HGB 15.4 g/dL 12.1-17.2 HCT 46 % 36-50 MCV 97.0 fL 82.2-97.4 MCH 32.8 pg 27.6-33.3 MCHC 33.8 g/dL 33.0-35.5 RDW 11.8 % 11.6-13.7 PLT 300 x10^3/UL 150-400 MPV 6.8 fL Low 7.4-10.4 Gran # 3.2 x10^3/UL 1.5-7.2 Lymph# 1.9 x10^3/UL 0.7-4.9 [place]# 0.2 x10^3/UL 0.1-0.9 Gran % 58.7 % 42.2-75.2 Lymph % 36.9 % 20.5-51.1 [place]% 4.4 % 1.7-9.3 Laboratory test finding 05/28/2014 TSH 2.67 mIU/L 0.50-6.00 26 Lipid Profile 05/28/2014 Cholesterol 272 mg/dL High 120-200 Triglycerides 116 mg/dL 30-200 HDL Cholesterol 62 mg/dL 30-85 LDL (Calculated) 187 CALC High 0-129 VLDL Cholesterol 23 mg/dL 0-50 HDL Risk Factor 4.4 CALC 0.0-4.4 Comprehensive Metabolic Prof 05/28/2014 Sodium 140 mEq/L 134-149 Potassium 5.0 mEq/L 3.6-5.5 Chloride 106 mEq/L 94-112 Carbon Dioxide 27 mEq/L 21-32 Glucose 93 mg/dL 70-105 BUN 18 mg/dL 6-26 Creatinine 0.7 mg/dL 0.6-1.4 BUN/Creat Ratio 25.7 CALC 8.0-36.0 Calcium 10.8 mg/dL High 8.6-10.2 27 Total Protein 8.0 g/dL 6.3-8.1 Albumin 4.7 g/dL 3.8-5.5 Globulin 3.3 g/dL 2.0-4.8 A/G Ratio 1.4 CALC 0.6-2.3 Alk. Phosphatase 83 U/L 30-110 Alt (SGPT) 29 U/L 7-35 Ast (Sgot) 21 U/L 5-34 Total Bilirubin 0.5 mg/dL 0.2-1.3 Laboratory test finding 05/21/2014 Thin Prep W/HPV(Lsil/BRENT/Asc) SEE NOTE 28 Ua - Non Micro (Fma) 05/21/2014 Appearance clear Color yellow Glucose, Urine (Fma/CMC/CTX) neg Bilirubin neg Ketones neg SP Grav 1.020 Blood neg PH 5.5 Protein neg Urobil 0.2 Nitrite neg Leukocytes (Fma/CMC/Centrex) neg Urine Culture & 01/25/2011 Urine Culture Sensitivi SN1 29 Sensitivi Urinalysis W/Microscopic 01/25/2011 Ua Color YELLOW Yellow Appearance-Urine CLEAR Clear Specific [place]-Ur 1.008 Low 1.010-1.030 Esterase-Urine 2+ Negative Nitrite NEGATIVE Negative [id number] NEGATIVE Negative Protein-Urine NEGATIVE Negative PH-Urine 5.5 5-9 Blood-Urine NEGATIVE Negative Ketones-Urine NEGATIVE Negative Bilirubin-Ur NEGATIVE Negative Glucose-Urine NEGATIVE Negative WBC-Urine 4-8 0-5 RBC-Urine RARE 0-2 Mucus Urine SMALL None Epith Cells-Ur MODERATE None Bacteria-Urine FEW None Amorphous Sed-U FEW None Urinalysis Stat 04/03/2007 Ua Color STRAW Appearance-Urine CLEAR Bilirubin-Ur NEGATIVE Negative Blood-Urine NEGATIVE Negative Esterase-Urine NEGATIVE Negative Glucose-Urine NEGATIVE Negative Ketones-Urine NEGATIVE Negative Nitrite NEGATIVE Negative PH-Urine 6.5 5-9 Protein-Urine NEGATIVE Negative [id number] NEGATIVE Negative Specific [place]-Ur 1.005 Low 1.010-1.030 Comp Stat 04/03/2007 One Over Creatinine 1.11 Anion Gap 8.0 mmol/L 2-11 30 Albumin/Globulin Ratio 1.5 1-3 Albumin 3.8 GM/DL 3.6-5.4 Alkaline Phosphatase 56 U/L 30-110 Alt (SGPT) 26 U/L 14-54 Ast (Sgot) 21 U/L 12-42 BUN 16 mg/dL 6-24 Calcium 9.3 mg/dL 8.7-10.2 Chloride 105 mmol/L 101-111 Co2 (Carbon Dioxide) 23.0 mmol/L 22-32 Globulin 2.5 GM/DL 2-4 Glucose 92 mg/dL 70-105 Potassium 4.2 mmol/L 3.5-5.0 Sodium 136 mmol/L 135-145 Bilirubin Total 0.5 mg/dL 0.4-1.5 Total Protein 6.3 GM/DL 6.2-8.1 BUN/Creatinine Ratio 17.8 8-20 Creatinine 0.9 mg/dL 0.5-1.4 CBC With Manual Diff Stat 04/03/2007 RBC Morphology NORMAL White Blood Count 5.6 CUMM 4.8-10.8 Absolute Neutrophil Count 3.7 Hematocrit 34 % Low 35-47 Hemoglobin 11.1 g/dL Low 12.0-16.0 Eosenophil 7 % High 0-6 Lymphocyte 22 % 5-47 Mean Corpuscular HGB Cone 33 g/dL 32-36 Mean Corpuscular Hemoglob 25 pg Low 27-31 Mean Corpuscular Volume 77 um3 Low 79-97 Monocyte 4 % 0-13 Mean Platelet Volume 7.7 um3 7.4-10.4 Platelet Count 340 CUMM 150-450 Polysegmented Neutrophil 67 % 38-83 Red Cell Count 4.39 CUMM 4.2-5.4 Redcell Distribution WDTH 18 % High 10.5-15 Laboratory test finding 01/20/2002 Gram Stain Smear SEE DETAIL Final 31 Stool Culture AEROMONAS SPECIS Final 32 Routine Concentrate (O&P) NO O&P OBSERVED Final Giardia Lamblia Antigen NONE DETECTED C. Difficile Toxin NEG Negative CBC With Diff (a) 01/18/2002 WBC 4.3 3.6-9.6 Lymphocytes 25.6 % 20.5 - 51.1 Monocytes 7.4 % 1.7-9.3 Granulocytes 67.0 % 42.2 - 75.2 Lymphocytes 1.1 10^3/uL 0.7 - 4.9 Monocytes 0.3 10^3/uL 0.1 - 0.9 Granulocytes 2.9 10^3/uL 1.5 - 7.2 RBC 4.53 3.90-5.70 Hemoglobin 15.4 g/dL 12.1 - 17.2 Hematocrit 42.3 % 36.1 - 50.3 Mean Corpuscular Vol 93.3 82.2-97.4 Mean Corpuscular Hemaglobin 34.0 High 27.6-33.3 Mean Corpuscular Hemo Concen 36.4 High 33.0-34.8 RDW 11.7 11.6-13.7 Platelets 234. 10^3/ul 150-400 Mean Platelet Volume 7.5 7.4-10.4 Comp Metabolic (Fma) 01/18/2002 Albumin 4.7 3.8-5.5 Alkaline Phosphatase 60 U/L 36-117 Bilirubin, Total 0.4 mg/dL 0.2-1.3 BUN 14 7-26 Calcium 9.6 mg/dL 8.6-10.0 Creatinine 0.8 mg/dL 0.6-1.4 Glucose 78 mg/dL 70 - 118 Ast Sgot 25 U/L 5-40 Alt (SGPT) 25 10-40 Total Protein 6.8 g/dL 6.4-8.3 Sodium 141 134-149 Potassium 4.7 3.6-5.5 Chloride 109 mEq/L 94-112 Co2 21 21-32 Globulin 2.1 2.0-4.8 Albumin / Globulin Ratio 2.2 0.6-2.2 BUN/Creatinin Ratio 17.5 8.0-36 Ua - Micro ([facility] [place]) 11/12/2000 Color YELLOW Appearance CLOUDY SP Grav 1.009 Low 1.010-1.030 Esterase 2+ High Negative Nitrite NEG Negative Urobil NEG Negative Protein 1+ High Negative PH 8.0 5-9 Blood 2+ High Negative Ketones NEG Negative Bilirubin, Micro NEG Negative Glucose NEG WBC'S 40-60 RBC'S 5-10 Epith OCC Bacteria 2+ Laboratory test finding 11/12/2000 Urine C&S SEE DETAIL Final 33 1 consistent w/ previous results 2 [id number] SEE RESULT BELOW Name: CHRISTOPHER FINK : [address]: Jonathan Ashton MD Acct: [id number] Unit: [id number] AGE: 61 Location: [facility] Re09/29/16 SEX: F Status: REG REF SPEC: [id number] JEANNINE: 09/29/[address] [facility] [address]: Jonathan Ashton MD REQ: [id number] RECD: 09/29/16 STATUS: [facility] DR: Kyler Kent MD _ SOURCE: URINE [facility]: ORDERED: Urine Culture COMMENTS: [id number] QUERIES: Urine Source: Clean Catch Procedure Result Reported Site Urine Culture Final 10/01/16- 0818 ML Organism 1 ESCHERICHIA COLI [place] Count >100,000 (Many) CFU/ML 1. ESCHERICHIA COLI M.I.C. RX --------- ------ Ampicillin 4 S Cefazolin <=4 S Cefepime <=1 S Ceftriaxone <=1 S Ciprofloxacin <=0.25 S Gentamicin <=1 S Levofloxacin <=0.12 S Meropenem <=0.25 S Nitrofurantoin <=16 S Tetracycline <=1 S Pipercillin/Tazobactam <=4 S Trimethoprim/Sulfamethoxazole <=20 S Amoxicillin/Clavulanic Acid <=2 S Aztreonam <=1 S Contact the Microbiology Department for any additional antibiotic reporting. * ML - MAIN LAB ([facility]) . END OF REPORT * ML=Testing performed at Main Lab DEPARTMENT OF PATHOLOGY, [address] [place] [address] Sabas Cortez M.D. Director [facility] # [id number] 4 NEGATIVE FOR INTRAEPITHELIAL LESION AND MALIGNANCY. THIS SPECIMEN WAS RESCREENED PART OF OUR WIRELESS NETWORK ENGINEER PROGRAM. 5 Satisfactory for evaluation. Endocervical and/or squamous metaplastic cells (endocervical component) are present. Areas of partially obscuring inflammatory exudate are present. 6 Z12.4 7 Allan Mckeon, Occupational Therapy Assistant (ASCP) 8 Khloe Peter, Occupational Therapy Assistant (ASCP) 9 The Pap smear is a screening test designed to aid in the detection of premalignant and malignant conditions of the uterine cervix. It is not a diagnostic procedure and should not be used as the sole means of detecting cervical cancer. Both false-positive and false-negative reports do occur. 10 This liquid based ThinPrep(R) pap test was screened with the use of an image guided system. 11 This test detects fourteen high-risk HPV types (16/18/31/33/35/39/45/ 51/52/56/58/59/66/68) without differentiation. 12 SRC:urine 1 ventura top 13 Source of Specimen: urine 1 ventura top 14 Source of Specimen: urine 1 ventura top 15 Because ethnic data is not always readily [...] 15-29 5 Kidney failure <15 (or dialysis) 16 consistent w/ previous results 17 18 Verified by repeat analysis 19 Interpretation Intact PTH Calcium (pg/mL) (mg/dL) Normal 15 - 65 8.6 - 10.2 Primary Hyperparathyroidism >65 >10.2 Secondary Hyperparathyroidism >65 <10.2 Non-Parathyroid Hypercalcemia <65 >10.2 Hypoparathyroidism <15 < 8.6 Non-Parathyroid Hypocalcemia 15 - 65 < 8.6 20 RESULTS VERIFIED BY REPEAT ANALYSIS 21 result recheck'd and consistent with previous results 22 FASTING 23 SEE RESULT BELOW Name: JOSEPHLANACHRISTOPHER : [address]: Scottie Delgadillo MD Acct: [id number] Unit: [id number] AGE: 60 Location: ENDO Re03/18/15 SEX: F Status: REG REF SPEC: [id number] JEANNINE: 03/18/15- SUBM DR: Scottie Delgadillo MD REQ: [id number] RECD: 03/18/15 STATUS: DUSTIN BENOIT DR: Kyler Kent MD _ ORDERED: LEVEL IV FINAL DIAGNOSIS Colon, sigmoid, biopsy: -- Tubular adenoma. -- No high grade dysplasia or malignancy. CLINICAL HISTORY Screening colonoscopy. Usual bowel habits - QD with blood. , ER June 2014, fell - broken wrist. Abdomen - soft, nontender, rectal decreased tone. POST-OPERATIVE DIAGNOSIS Screening colonoscopy to cecum, very redundant sigmoid. Lesion biopsy at 49 , sig vs diverticulosis. Conclusion/Plan: 1. Diverticulosis, 2. Sigmoid, 3. Rectal varix/veins, 4. Anastomotic challenge. GROSS DESCRIPTION The specimen is received in formalin labeled, Biopsy Sigmoid Polyp, and consists of three cho irregular soft tissue fragments ranging from 0.3 x 0.3 x 0.2 cm to 0.6 x 0.2 x 0.2 cm, which are submitted entirely in one cassette. Signed (signature on file) Eugenia Ward MD 1614 END OF REPORT * ML=Testing performed at Main Lab DEPARTMENT OF PATHOLOGY, [address] [place] [address] Sabas Cortez M.D. Director [facility] # [id number] 24 Because ethnic data is not always readily [...] 15-29 5 Kidney failure <15 (or dialysis) 25 Reference Range and Interpretation: TnI (ng/mL) Interpretation Less Than 0.03 ng/mL Not supportive of diagnosis of ME 0.03 - 0.50 ng/mL Indeterminate: suggest serial studies if clinically indicated. Greater than 0.5 ng/mL Consistent with diagnosis of ME 26 FASTING 27 RESULTS VERIFIED BY REPEAT ANALYSIS 28 [facility] [employer], [employer]. DEPARTMENT OF PATHOLOGY or Ext. [phone], Fax [employer] DESIGN[employer] CYTOLOGY REPORT Patient: CHRISTOPHER FINK : 1955 AGE: 59 Y SEX: F Acct: [id number] Procedure Date: 05/21/2014 Date Received: 05/22/2014 Requesting Provider: KYLER KENT MD Location: [facility] [place] [facility] Case No. [id number] Requisition #: [id number] CYTOLOGIC INTERPRETATION: SPECIMEN ADEQUACY SATISFACTORY FOR EVALUATION, ENDOCERVICAL TRANSFORMATION ZONE COMPONENT PRESENT GENERAL CATEGORIZATION NEGATIVE FOR INTRAEPITHELIAL LESIONS OR MALIGNANCY RECOMMENDATIONS Refer to the corresponding web sites for 2012 updated general recommendation guidelines of [place].S. preventive service task force for cervical cancer screening, and www.asccp.org//qjdbnviky4777. COMMENTS Thin Prep Pap tests are examined with an FDA approved location-guidance system. PATIENT DATA POSTMENOPAUSAL, LAST PAP 3 - 4 YEARS AGO - WNL SPECIMEN SUBMITTED: * * (HPVII) THIN PREP W/HPV (LSIL/ASC/BRENT) * * ENDOCERVICAL RELEVANT HISTORY: Screened/Rescreened Electronically Signed Sign Out Date/Time: by: by: GIUSEPPE TAO(ASCP) 05/23/2014 11:37 Note: The Pap smear is a screening test designed to aid in the detection of premalignant and malignant conditions of the uterine cervix. It is not a diagnostic procedure and should not be used as the sole means of detecting cervical cancer. Both false-positive and false-negative reports do occur. 00 UA Pap Smear performed at [employer] Dir: Adalberto Yap MD, [address] [facility] [address] 01 fuel system maintenance worker [facility] Dir: Yanira Duran MD, [address] [facility] [id number] 02 [facility] [place] Dir: Michele Loaiza MD, [address] [place] [phone] For inquiries regarding HPV test results, the physician may contact Lab [facility]: [phone] . 29 SCANT NORMAL URETHRAL OR PERINEAL ROMANA 30 Anion gap measurement may be of limited value in the presence of any alkalosis, especially in a combined acid base disorder. . 31 SMEAR: MANY GRAM NEG BACILLI MANY GRAM POS BACILLI MANY GRAM POS COCCI 32 AEROMONAS SPECIES. 1. AEROMONAS SPECIES RX M.I.C. AMPICILLIN R >=32 CEFAZOLIN S <=8 CEFOTETAN S <=16 CEFEPIME S <=4 CEFOTAXIME S <=4 CEFTRIAXONE S <=8 CIPROFLOXACIN S <=0.5 GENTAMICIN S <=0.5 IMIPENEM S <=4 CEFTAZIDIME S <=8 LEVOFLOXACIN S <=1 PIPERACILLIN S <=8 PIPERCILLIN/TAZOBACTAM S <=8 TRIMETH-SULFA S <=10 GENTAMICIN BEBE OF 4 IS CONSIDERED SENSITIVE. HOWEVER, IT MAY BE POSSIBLE TO ACHIEVE THIS CONCENTRATION IN MANY TISSUES EVEN WITH MAXIMAL SERUM LEVELS. 33 MODERATE ESCERICHIA COLI. 1. ESCHERICHIA COLI RX M.I.C. AMPICILLIN S 1 AMOXICILLIN/CLAVULANIC ACID S <=8 CARBENICILLIN S <=16 CEFTRIAXONE S <=8 CEFUROXIME-SODIUM S <=4 CEFUROXIME-AXETIL S <=4 NORFLOXACIN S <=4 CEPHALOTHIN S 4 CIPROFLOXACIN S <=0.5 OFLOXACIN S <=1 GENTAMICIN S <=0.5 MINOCYCLINE S <=2 NALDIXIC ACID S <=16 NITROFURANTOIN S <=32 TICARCILLIN-CLAV S <=16 TRIMETH-SULFA S <=10 GENTAMICIN BEBE OF 4 IS CONSIDERED SENSITIVE. HOWEVER, IT MAY BE POSSIBLE TO ACHIEVE THIS CONCENTRATION IN MANY TISSUES EVEN WITH MAXIMAL SERUM LEVELS. Procedures Date CPT Code Description Status Comment 09/24/2016 Mammogram Completed 04/12/2016 45592 Dxa Bone Density Study One Or Completed More Sites Axial Skeleton 04/05/2016 Bone Mineral Density Test Completed Osteopenia, mild 07/01/2015 Mammogram Completed 03/18/2015 Colonoscopy Completed 02/03/2015 Colonoscopy Completed One sigmoid adenoma, repeat in 5 years 06/13/2014 Mammogram Completed 05/21/2014 55097 Electrocardiogram Complete Completed 05/14/1998 86598 Electrocardiogram Complete Completed Encounters Type Date Location Provider CPT E/M Dx Office Visit 04/21/2017 11:00a Main Office Kyler Kent M.D. 99641 E78.4 I10 M85.9 M25.512 M54.2 Z23 Office Visit 10/21/2016 10:40a Main Office Kyler Kent M.D. 99764 I10 E78.4 Office Visit 06/22/2016 6:40p Main Office Kyler Kent M.D. 82326 I10 M16.0 Z01.818 M25.552 Office Visit 04/01/2016 1:20p Main Office Kyler Kent M.D. 46663 I10 R39.15 M25.552 E78.2 Office Visit 12/25/2015 11:00a Main Office Kyler Kent M.D. 47580 E83.52 I10 M25.512 M25.552 M25.551 M81.0 Office Visit 10/23/2015 9:40a Main Office Kyler Kent M.D. 45287 I10 E83.52 M81.0 M25.512 M25.551 M25.552 Office Visit 07/22/2015 7:20p Main Office Kyler Kent M.D. 11378 E83.52 I10 M81.0 Office Visit 02/27/2015 9:20a Main Office Kyler Kent M.D. 46827 401.9 733.00 Office Visit 10/03/2014 10:00a Main Office Kyler Kent M.D. 71143 401.9 733.00 Office Visit 09/11/2014 10:30a Main Office Shelbie Galvan, Afnp-C 58279 401.9 Office Visit 08/27/2014 1:40p Main Office Kyler Kent M.D. 81544 733.00 719.41 719.45 V72.83 v04.81 V05.8 Office Visit 08/14/2014 9:20a Main Office [place] Camp M.D. 31257 465.9 Office Visit 07/02/2014 4:00p Main Office Kyler Kent M.D. 21270 733.00 Office Visit 05/21/2014 2:40p Main Office Kyler Kent M.D. 90498 724.5 719.45 V70.0 Office Visit 01/18/2002 3:00p Main Office Hamlet Randhawa M.D. 89668 Plan of Care Future Appointment(s):04/06/2018 8:40 am - Kyler Kent M.D. at Main Otsfoo4010/04/2017 - Kyler Kent M.D.M25.551 Pain in right hipComments:I feel she is medically clear for the planned right hip replacement by Dr DawsonI10 Essential (primary) hypertensionComments:continue current medication, call if bp elevation is persistent above 140/90M85.9 Disorder of bone density and structure, unspecifiedComments:Patient had a previous Colles' fracture, discussed followup of her bone density in the near future and she may benefit from additional therapy, will obtain a DEXA scan in the springE78.4 Other hyperlipidemiaComments:has a high HDL [id number] CervicalgiaComments :neck arthritis, consider referral to pain clinic after her hip pwtjfatT41.9 Acute bronchitis, unspecifiedComments:symptoms of bronchitis, will start on azithromycin and call if no improvementAllNew Medication:Azithromycin 250 mgComments:~B_~U_Medication Management~b_~u_ Patient Understands medications she 's taking? Yes No Are there Barriers to Adherence? Yes No Has the patient been asked about herbal supplements and therapies, and OTC meds? Yes NoFollow up:return for follow up in 6 months
[2017-10-18] MEDS ORDERED: Famotidine IV* 10 MG/ML 2 ML (20 mg) ONE (07:21)
[2017-10-18] MEDS ORDERED: ceFAZolin 1 GM in Dextrose (*) 2 GM/100 ML BAG IVPB ONE (07:22)
[2017-10-18] MEDS ORDERED: Scopolamine 1.5 mg* PATCH ONE (07:22)
[2017-10-18] MEDS ORDERED: Gabapentin CAP(*) 300 MG ONE (07:22)
[2017-10-18] MEDS ORDERED: Midazolam* 1 MG/ML 10 ML VIAL (10 MG) ONE (08:30)
[2017-10-18] MEDS ORDERED: KETAMINE HCL* 50 MG/ML 10 ML VIAL ONE (08:30)
[2017-10-18] MEDS ORDERED: Morphine PF AMP (0.5MG/ML)* 5 MG/10 ML AMP ONE (08:30)
[2017-10-18] MEDS ORDERED: fentaNYL* 50 MCG/ML 2 ML VIAL (100 MCG VIAL) ONE (08:30)
[2017-10-18] MEDS ORDERED: Ketorolac INJ* 30 MG/ML 1 ML VIAL IV PRN (10:00)
[2017-10-18] MEDS ORDERED: Ondansetron INJ* 2 MG/ML VIAL IV PRN (10:00)
[2017-10-18] MEDS ORDERED: oxyCODONE/Acetamin 5/325 MG* TAB PO PRN (10:00)
[2017-10-18] MEDS ORDERED: DiMENhydriNATE IV* 50 MG/ML VIAL IV PUSH PRN (10:00)
[2017-10-18] MEDS ORDERED: Nalbuphine* 20 MG/ML 1 ML VIAL IV PRN ×2 (10:00)
[2017-10-18] MEDS ORDERED: diPHENhydraMINE IV* 50 MG/ML 1 ml VIAL (BENADRYL) IV PRN (10:00)
[2017-10-18] MEDS ORDERED: Naloxone* 0.4 MG/ML 1 ML VIAL IV PRN (10:00)
[2017-10-18] MEDS ORDERED: PROCHLORPERAZINE INJ 5 MG/ML 2 ML VIAL IV PRN (10:00)
[2017-10-18] MEDS ORDERED: Naloxone* 2 MG in NS 0.9% 250 ML* 250 ML IV PRN (10:00)
[2017-10-18] MEDS ORDERED: Cyclobenzaprine TAB* 10 MG PO PRN (10:50)
[2017-10-18] MEDS ORDERED: Bisacodyl SUPP* 10 MG SUPP PR PRN (10:50)
[2017-10-18] MEDS ORDERED: Magnesium Hydroxide LIQ* 30 ML UDC PO PRN (10:50)
[2017-10-18] MEDS ORDERED: Acetaminophen TAB* 325 MG PO PRN (10:50)
[2017-10-18] MEDS ORDERED: Clindamycin 600 MG IVPREMIX(* 600 MG/50 ML SDV IV SCH (11:00)
[2017-10-18] MEDS ORDERED: Propofol* 500 MG/50 ML BTL ONE (11:07)
[2017-10-18] MEDS ORDERED: Lidocaine 2% PF * 5 ML VIAL ONE (11:07)
[2017-10-18] MEDS ORDERED: Phenylephrine INJ* 10 MG/ML 1 ML VIAL (10 MG) ONE (11:07)
[2017-10-18] MEDS ORDERED: Bupivacaine 0.5% SDV PF* 10-30ML VIAL ONE (11:07)
[2017-10-18] MEDS ORDERED: Ketorolac INJ* 30 MG/ML 1 ML VIAL ONE (11:08)
[2017-10-18] MEDS ORDERED: Dexamethasone IV* 4 MG/ML 1 ML (4 MG) ONE (11:08)
[2017-10-18] MEDS ORDERED: PROCHLORPERAZINE INJ 5 MG/ML 2 ML VIAL ONE (11:08)
[2017-10-18] MEDS ORDERED: Ondansetron INJ* 2 MG/ML VIAL ONE (11:08)
--- NOTE | 2017-10-18 12:31 | RAD ---
Indication: Right hip replacement Single view of the right hip demonstrates right acetabular cup and right femoral reamer in place for right hip replacement. IMPRESSION: Intraoperative control films for right hip replacement.
--- NOTE | 2017-10-18 12:40 | RAD ---
HISTORY: Status post right hip arthroplasty COMPARISONS: August 26, 2017 VIEWS: 3, Frontal view of the pelvis with frontal and crosstable lateral views of the right hip FINDINGS: BONE DENSITY: Normal. BONES: The patient is status post bilateral hip arthroplasty. On the right, there is no hardware failure or osteolysis. JOINTS: The patient is status post bilateral hip arthroplasty. ALIGNMENT: There is no dislocation. SOFT TISSUES: Unremarkable. OTHER FINDINGS: None. IMPRESSION: STATUS POST BILATERAL HIP ARTHROPLASTY.
[2017-10-18] MEDS: Enoxaparin(*) 30 MG/0.3 ML SYR SUBCUT SCH (16:01)
[2017-10-18] MEDS ORDERED: Warfarin TAB(*) 6 MG PO ONE (17:00)
[2017-10-18] MEDS: Calcium Carbonate CHEW TAB* 500 MG (TUMS) PO SCH (17:24)
[2017-10-18] MEDS: Clindamycin 600 MG IVPREMIX(* 600 MG/50 ML SDV IV SCH (17:24)
[2017-10-18] MEDS: amLODIPine TAB* 5 MG PO SCH (17:24)
[2017-10-18] MEDS: CMCS Solifenacin(NF) 5 MG TAB PO SCH (17:28)
[2017-10-18] MEDS: Docusate CAP* 100 MG PO SCH (22:02)
[2017-10-18] MEDS: Magnesium Hydroxide LIQ* 30 ML UDC PO SCH (22:02)
--- NOTE | 2017-10-18 22:08 | CONS ---
CC: Cameron Kent MD; Manjula Dawson MD * CONSULTATION REPORT: DATE OF CONSULT: 10/18/17 PRIMARY CARE PROVIDER: Cameron Kent MD ATTENDING PHYSICIAN: Allan Garcia MD (dictated by Sondra Kearns NP) PHYSICIAN REQUESTING CONSULTATION: Manjula Dawson MD REASON FOR CONSULTATION: Co-medical management in a patient with a history of hypertension and hyperlipidemia. HISTORY OF PRESENT ILLNESS: Ms. Turk is a 62-year-old female with past medical history significant for hypertension, hyperlipidemia, and osteoporosis who presented to the hospital today to have an elective right total hip arthroplasty with Dr. Manjula Dawson. Leading up to the procedure today, the patient states she has been in her usual state of health. She denies any recent fever, chills, chest pain, shortness of breath, nausea, vomiting, or diarrhea. Postoperatively, the patient states that her pain is controlled and she is doing well. Hospitalists were asked to assist with co-medical management in this patient during her hospitalization. PAST MEDICAL HISTORY: 1. Hypertension. 2. Hyperlipidemia. 3. Osteoporosis. PAST SURGICAL HISTORY: 1. Status post left shoulder rotator cuff repair. 2. Status post section. 3. Status post ORIF of the right wrist. 4. Status post parathyroidectomy. 5. Status post left total hip arthroplasty. 6. Status post left shoulder arthroscopy. HOME MEDICATIONS: Include: 1. Amlodipine 2.5 mg oral daily. 2. VESIcare 10 mg oral daily. 3. Vitamin C 1000 mg oral daily. 4. Krill oil 500 mg oral daily. 5. Garlic 1 tablet oral twice daily. 6. Magnesium 400 mg oral daily. 7. Biotin 5000 mcg oral daily. 8. [place] 10/325 one tablet oral every 8 hours as needed for pain. 9. Vitamin D3 1000 units oral daily. 10. Black cohosh 1 oral daily. 11. Acetaminophen 1000 mg oral every 6 hours as needed for pain. 12. Naproxen 500 mg oral twice daily as needed for pain. 13. Tramadol 50 mg oral every 6 hours as needed for pain. 14. Calcium carbonate 500 mg oral every evening. ALLERGIES: None. FAMILY HISTORY: The patient's father had a history of heart disease. She has a sister with a history of diabetes mellitus and there is a family history of melanoma. SOCIAL HISTORY: The patient denies tobacco, alcohol, recreational drug use. She lives with her . Her , Mustapha Turk, will be her surrogate decision maker in the event she is unable to make decisions for herself. REVIEW OF SYSTEMS: I performed an 11-point review of systems. All the pertinent positives and negatives are mentioned in the history of present illness. The remaining review of systems are negative. PHYSICAL EXAMINATION: Vital Signs: Temperature 97.2, heart rate 69, respiratory rate 16, O2 sat 100% on 2 L via nasal cannula, blood pressure 148/ 75. General Appearance: The patient is alert, pleasant, appears to be in no acute distress. Head: Normocephalic, atraumatic. ENT: Pupils are equal and reactive to light. Extraocular movements are intact. Cardiovascular: Regular rate and rhythm. S1, S2 crisp. There are no murmurs, rubs, or gallops heard. Respiratory: There is no accessory muscle use. Lungs are clear to auscultation , bilateral. Abdomen: Soft, nontender, nondistended. There are bowel sounds present x4. Extremities: There is no lower extremity edema. DP and PT pulses are 2+ and symmetric. Musculoskeletal: There is no clubbing or cyanosis noted. The patient exhibits good strength in all extremities. Skin: There is a dressing to the right hip that is clean, dry, and intact. Neurological: Cranial nerves II through XII are grossly intact. The patient moves all extremities. Psychological: The patient is calm and cooperative. LABORATORY DATA: Preoperative labs from 10/07/17: Sodium 140, potassium 4.1, chloride 105, CO2 27, BUN 20, creatinine 0.77, and glucose 87. White blood cell count 7.8, hemoglobin 15.2, hematocrit 44, and platelet count 309. IMPRESSION: Ms. Turk is a 62-year-old female with past medical history significant for hypertension, hyperlipidemia, who presented to the hospital for an elective right total hip arthroplasty with Dr. Dawson for end-stage osteoarthritis. Hospitalists were asked to assist with co-medical management of this patient during her hospitalization. ASSESSMENT AND PLAN: 1. Osteoarthritis. Status post right total hip arthroplasty postop day. Management will be per Orthopedic Surgery. The patient will have her H and H's trended. She will have a urinary catheter in place until postop day 1. She will have physical therapy, occupational therapy. She will be placed on a bowel regime and a pain medication schedule. 2. Hypertension. Normotensive at this time, will be continued on her home amlodipine. 3. Fluids, electrolytes, and nutrition. The patient will be on a clear liquid , advanced diet as tolerated to regular diet. 4. DVT prophylaxis. The patient will be on Lovenox bridged to warfarin per Orthopedic Surgery. 5. Code status. Full code. 6. Disposition. Inpatient. Disposition per Orthopedic Surgery. TIME SPENT: Time for this consultation was approximately 45 minutes, greater than half of that was spent with the patient discussing medications, past medical history, the events leading up to her arrival today, performing a physical examination. Reviewed by ENOC DE SANTIAGO 10/19/17 1646 [id number]/CHEY #: [id number] MTDJose
[2017-10-19] MEDS ORDERED: diPHENhydraMINE IV* 50 MG/ML 1 ml VIAL (BENADRYL) IV PRN (01:15)
[2017-10-19] MEDS ORDERED: Ondansetron INJ* 2 MG/ML VIAL IV PRN (01:15)
[2017-10-19] MEDS ORDERED: oxyCODONE/Acetamin 5/325 MG* TAB PO PRN (01:15)
[2017-10-19] MEDS ORDERED: Morphine INJ* 2 MG/ML 1 ML CARPUJECT IV PRN (01:15)
[2017-10-19] MEDS: Clindamycin 600 MG IVPREMIX(* 600 MG/50 ML SDV IV SCH ×2 (01:40→09:56)
[2017-10-19 05:21] LABS: Hematocrit 32 % (35-47); Hemoglobin 11.3 g/dl (12.0-16.0); Mean Platelet Volume 8 um3 (7.4-10.4); Platelet Count 202 10^3/ul (150-450)
[2017-10-19 05:23] LABS: INR 1.14 (0.77-1.02)
[2017-10-19 05:31] LABS: EGFR Non-African American 88.9 (>60)
[2017-10-19] MEDS: oxyCODONE/Acetamin 5/325 MG* TAB PO PRN ×3 (07:32→18:13)
--- NOTE | 2017-10-19 07:43 | PN ---
Progress Note - Progress Note Date of Service: 10/19/17 Note: Anesthesia duramorph follow up. Alert, VSS, -BRANCH,-NV. Neuro ok. Pt reports no pain. s/p THR, continue oral meds.
[2017-10-19] MEDS: Magnesium Hydroxide LIQ* 30 ML UDC PO SCH ×2 (09:59→19:10)
[2017-10-19] MEDS: Docusate CAP* 100 MG PO SCH ×2 (10:00→19:10)
[2017-10-19] MEDS: Vitamin THERAPEUTIC TAB PO SCH (10:01)
[2017-10-19] MEDS: Ascorbic Acid TAB* 500 MG PO SCH (10:02)
[2017-10-19] MEDS: Magnesium Oxide TAB* 400 MG PO SCH (10:03)
[2017-10-19] MEDS: Enoxaparin(*) 30 MG/0.3 ML SYR SUBCUT SCH (11:10)
--- NOTE | 2017-10-19 11:19 | PN ---
Progress Note - Progress Note Date of Service: 10/19/17 SOAP: Subjective: []Patient seen at bedside. She feels well, LLE pain is tolerable. Objective: [] Vital Signs Temp 98.1 F 10/19/17 07:39 Pulse 83 10/19/17 08:21 Resp 18 10/19/17 10:09 BP 124/61 10/19/17 07:39 Pulse Ox 97 10/19/17 08:21 Intake & Output 10/18/17 10/19/17 10/19/17 18:59 06:59 18:59 Intake Total 2600 2192 1558 Output Total 1500 845 300 Balance 1100 1347 1258 Weight 191 lb Intake: IV Fluids 2550 1002 1078 ABX - CLINDAMYCIN 105 LR 2550 1002 973 IVPB 50 ABX - CLINDAMYCIN 50 Oral 0 1190 480 Output: Urine 300 Reyes 1200 845 Estimated Blood Loss 300 Other: # Bowel Movements 0 0 Laboratory Last Values Hgb 11.3 g/dl (12.0-16.0) L 10/19/17 04:53 Hct 32 % (35-47) L 10/19/17 04:53 Plt Count 202 10^3/ul (150-450) 10/19/17 04:53 MPV 8 um3 (7.4-10.4) 10/19/17 04:53 INR (Anticoag Therapy) 1.14 (0.77-1.02) H 10/19/17 04:53 Sodium 136 mmol/L (133-145) 10/19/17 04:48 Potassium 4.5 mmol/L (3.5-5.0) 10/19/17 04:48 Chloride 104 mmol/L (101-111) 10/19/17 04:48 Carbon Dioxide 27 mmol/L (22-32) 10/19/17 04:48 Anion Gap 5 mmol/L (2-11) 10/19/17 04:48 BUN 15 mg/dL (6-24) 10/19/17 04:48 Creatinine 0.67 mg/dL (0.51-0.95) 10/19/17 04:48 Est GFR ( Amer) 114.3 (>60) 10/19/17 04:48 Est GFR (Non-Af Amer) 88.9 (>60) 10/19/17 04:48 BUN/Creatinine Ratio 22.4 (8-20) H 10/19/17 04:48 Glucose 116 mg/dL (70-100) H 10/19/17 04:48 Calcium 8.6 mg/dL (8.6-10.3) 10/19/17 04:48 General: Well appearing, NAD. Calm and cooperative RLE: Dressing of right hip CDI without surrounding erythema. DF/PF intact. 2+ DP pulse. Sensation intact to light touch distally. BL LE: Calves supple and nontender without erythema, edema or palpable cords. Assessment: []POD 1 S/P right total hip replacement 10/18/17, Dr Dawson Plan: []WBAT PT/OT Hip precautions Lovenox, coumadin 6 mg today
[2017-10-19] MEDS ORDERED: Warfarin TAB(*) 6 MG PO ONE (17:00)
[2017-10-19] MEDS: amLODIPine TAB* 5 MG PO SCH (17:08)
[2017-10-19] MEDS: Calcium Carbonate CHEW TAB* 500 MG (TUMS) PO SCH (17:08)
[2017-10-19] MEDS: CMCS Solifenacin(NF) 5 MG TAB PO SCH (17:09)
--- NOTE | 2017-10-19 17:46 | OP ---
DATE OF OPERATION: 10/18/17 - ROOM #347 DATE OF : 53 SURGEON: Manjula Dawson MD [employer] DEVELOPER: GEO Chavez. Ms. Mckeon did help throughout the procedure with preparation of the leg, wound retraction, manipulation of the hip, and wound closure. PRE-OP DIAGNOSIS: Severe end-stage degenerative osteoarthritis of the right hip joint. POST-OP DIAGNOSIS: Severe end-stage degenerative osteoarthritis of the right hip joint. OPERATIVE PROCEDURE: Right total hip arthroplasty. COMPLICATIONS: None. ESTIMATED BLOOD LOSS: 300 cc. SPECIMEN: Femoral head and acetabular reaming sent to Pathology. HARDWARE USED: This is [place] uncemented total hip hardware. For the acetabular cup, a Trident Tritanium 54E hemispherical shell. A single 20-mm and a single 25- mm screw were used for the liner, a Trident X3 10-degree polyethylene insert 36E. For the stem, an Accolade TMZF size 4 with a 127- degree neck. For the head, a Biolox delta ceramic femoral head 36 -2.5. BRIEF HISTORY/INDICATION: Ms. Turk is a 62-year-old female with years of increasingly severe right hip pain. She failed conservative treatment with anti - inflammatories, pain medication, intraarticular injection, and physical therapy. Due to continued pain and decreased quality of life, she elected to undergo a right total hip arthroplasty. Radiographs showed [id number] arthritis. Informed consent was obtained from the patient. She understood the risks of surgery, included but were not limited to bleeding, infection, damage to nearby structures, continued pain, need for further surgery, intraoperative fracture, nerve palsy, hardware failure or loosening, dislocation, leg length discrepancy, stroke, heart attack, blood clot, and . She wished to proceed. INTRAOPERATIVE FINDINGS: Intraoperatively, the patient was noted to have chronic appearing fracture of at least one-third of her posterior wall. She has significant amount of anterior and inferior osteophyte formation. DESCRIPTION OF PROCEDURE: Ms. Turk was identified in the preanesthesia unit. Her right lower extremity was marked as the correct operative side. Informed consent was signed and placed in the chart. The patient was taken to the operating room. She was placed under spinal anesthesia. A Reyes catheter was placed. The patient was placed in the left lateral decubitus position on the peg board and all bony prominences were well padded. Right lower extremity was prepped and draped in the usual sterile fashion. Preop time-out was made to correctly identify the patient's side and site. Appropriate perioperative antibiotics were given within 1 hour of incision. A 12-cm posterior hip incision was made with a 10 blade and carried down to the lateral fascial layer. The lateral fascial layer was incised in line with the skin incision. A Charnley retractor was placed. The piriformis and conjoint tendons were elevated off the posterolateral femur using electrocautery. These were tagged with #5 Ethibonds. Next, electrocautery was used to make a standard posterolateral capsular flap and this was also tagged with #5 Ethibonds. The hip was carefully dislocated. Lesser troch to the center of the femoral head measured 60 mm. Oscillating saw was used to make the appropriate femoral neck cut. Femoral head was removed. The femur was carefully retracted anteriorly. After appropriate placement of retractors, the acetabulum was well visualized. Long-handled knife was used to sharply remove any remaining labrum from the acetabular rim. It was noted that one-third of the posterior wall had a chronic fracture and this was carefully removed. The acetabulum was shallow and had severe wear. The acetabulum was sequentially reamed up to a size 53. Bleeding subchondral bone was obtained. A 53 trial had excellent stability and fit. Final implant chosen was a Trident Tritanium hemispherical shell 54E. This was impacted into the acetabulum without difficulty. The cup was stable. There was appropriate anteversion and abduction angle. A single 20-mm and a single 25-mm 6.5 cancellous bone screw was placed in the superior posterior quadrant for extra stability. Rongeur and thin osteotome were used to remove the osteophytes from the inferior and anterior border of the acetabulum. The insert chosen was a Trident X3 10- degree polyethylene insert 36E. This was impacted into the acetabulum without difficulty. Stability of the liner was checked and rechecked and noted to be stable. Attention was turned next to preparation of the femur. Canal finder was used to enter the proximal femur. The femur was sequentially broached up to a size 4. The size 4 broach had excellent fit and appropriate anteversion. A 127 trial neck with a 36 +0 trial head was chosen for a lesser troch to the center of the femoral head measured 63 mm. Therefore, a 36 -2.5 head trial was chosen. Lesser troch to the center of the femoral head measured 61 mm. The hip was reduced and taken through a range of motion. The hip was stable in all positions. Leg lengths and soft tissue tension was appropriate. The hip was carefully dislocated. All trials were removed. Final implant chosen was an Accolade TMZF size 4 with 27-degree neck. This was impacted into the femoral canal without difficulty. A Biolox delta ceramic V40 femoral head 36 -2.4 was chosen. This was placed without difficulty. Lesser troch to the center of the femoral head measured 60 mm. The hip was reduced and taken through a range of motion. The hip was stable in all positions. Leg lengths and soft tissue tension were appropriate. The hip was copiously irrigated with sterile saline. Previously tagged capsule and tendons were reapproximated to the posterolateral femur through 2 trochanteric drill holes. The lateral fascial layer was closed using interrupted #1 Vicryls. The rest of the incision was closed in a layered fashion using 0 and 2- 0 Vicryls. The skin was closed using running 3-0 Monocryl and Dermabond. Sterile Adaptic, 4x4s, and paper tape were used to cover the incision. The patient's anesthesia was reversed without difficulty. She was taken to the PACU in stable condition. Intended weightbearing will be weightbearing as tolerated. Intended DVT prophylaxis will be Coumadin with a Lovenox bridge. [id number]/[facility] #: [id number] PINKY
--- NOTE | 2017-10-19 18:20 | PN ---
Subjective Date of Service: 10/19/17 Interval History: Patient seen and examined. Tired from PT, pain is tolerable. Denies BRANCH, no chest pain, no SOB, no n/v. Tolerating PO. Objective Active Medications: Acetaminophen (Tylenol Tab*) 650 mg PO Q4H PRN PRN Reason: PAIN OR TEMPERATURE Amlodipine Besylate (Norvasc Tab*) 2.5 mg PO QPM [facility] [place] Last Admin: 10/19/17 17:08 Dose: 2.5 mg Ascorbic Acid (Vitamin C Tab*) 1,000 mg PO QAM [facility] [place] Last Admin: 10/19/17 10:02 Dose: 1,000 mg Bisacodyl (Dulcolax Supp*) 10 mg [place] DAILY PRN PRN Reason: constipation Calcium Carbonate (Tums*) 500 mg PO QPM [facility] [place] Last Admin: 10/19/17 17:08 Dose: 500 mg Cyclobenzaprine HCl (Flexeril Tab*) 10 mg PO TID PRN PRN Reason: SPASMS Diphenhydramine HCl (Benadryl Iv*) 25 mg IV Q6H PRN PRN Reason: itching Docusate Sodium (Colace Cap*) 100 mg PO BID [facility] Last Admin: 10/19/17 10:00 Dose: 100 mg Enoxaparin Sodium (Lovenox(*)) 30 mg SUBCUT Q24H [facility] [place] Last Admin: 10/19/17 11:10 Dose: 30 mg Lactated Ringer's (Lactated Ringers 1000 Ml Bag*) 1,000 mls @ 100 mls/hr IV PER RATE [facility] [place] Last Admin: 10/19/17 00:14 Dose: 100 mls/hr Ketorolac Tromethamine (Toradol Inj*) 15 mg IV Q6H PRN PRN Reason: PAIN Magnesium Hydroxide (Milk Of Magnesia Liq*) 30 ml PO BID [facility] [place] Last Admin: 10/19/17 09:59 Dose: 30 ml Magnesium Hydroxide (Milk Of Magnesia Liq*) 30 ml PO Q6H PRN PRN Reason: constipation Magnesium Oxide (Magox 400 Tab*) 400 mg PO QAM [facility] [place] [place] Last Admin: 10/19/17 10:03 Dose: 400 mg Morphine Sulfate (Morphine Inj (Syringe)*) 2 mg IV Q2H PRN PRN Reason: PAIN - UNCONTROLLED Multivitamins (Theragran Tab*) 1 tab PO DAILY [facility] [place] Last Admin: 10/19/17 10:01 Dose: 1 tab Ondansetron HCl (Zofran Inj*) 4 mg IV Q6H PRN PRN Reason: nausea Oxycodone HCl (Roxycodone Tab*) 10 mg PO Q4H PRN PRN Reason: PAIN - SEVERE Oxycodone/Acetaminophen (Percocet 5/325 Tab*) 2 tab PO Q4H PRN PRN Reason: PAIN Last Admin: 10/19/17 18:13 Dose: 2 tab Oxycodone/Acetaminophen (Percocet 5/325 Tab*) 1 tab PO Q4H PRN PRN Reason: PAIN Pharmacy Profile Note (Scopolamine Patch Remove*) 1 note PATCH OFF ONCE ONE Stop: 10/21/17 06:01 Pharmacy Profile Note (Coumadin Daily Reminder*) 1 note FOLLOW UP 1700 [facility] [place] Last Admin: 10/19/17 17:08 Dose: 1 note Solifenacin (Vesicare(Nf)) 10 mg PO QPM [facility] [place] Last Admin: 10/19/17 17:09 Dose: 10 mg Vital Signs - 8 hr 10/19/17 10/19/17 10/19/17 10:32 12:35 14:57 Temperature 98.2 F Pulse Rate 69 Respiratory 15 18 18 Rate Blood Pressure 94/51 (mmHg) O2 Sat by Pulse 97 Oximetry 10/19/17 10/19/17 10/19/17 15:27 16:00 18:13 Temperature 98.2 F Pulse Rate 83 Respiratory 16 18 Rate Blood Pressure 109/61 (mmHg) O2 Sat by Pulse 96 96 Oximetry Oxygen Devices in Use Now: None Appearance: Alert, NAD Eyes: No Scleral Icterus, PERRLA Ears/Nose/Mouth/Throat: NL Teeth, Lips, Gums Neck: Trachea Midline Respiratory: Symmetrical Chest Expansion and Respiratory Effort, Clear to Auscultation Cardiovascular: NL Sounds; No Murmurs; No JVD, RRR Abdominal: NL Sounds; No Tenderness; No Distention Skin: No Rash or Ulcers Neurological: Alert and Oriented x 3, NL Sensation Nutrition: Taking PO's Result Diagrams: 10/19/17 04:53 10/19/17 04:48 Assess/Plan/Problems-Billing Assessment: - Patient Problems (1) Osteoarthritis of right hip Code(s): M16.11 - UNILATERAL PRIMARY OSTEOARTHRITIS, RIGHT HIP SNOMED Code(s) : 808774523490144 Comment: - POD1 - POC as per ortho, pain control, OOB with hip precautions, PT/OT - DVT prophy with coumadin bridge (2) Hypertension Code(s): I10 - ESSENTIAL (PRIMARY) HYPERTENSION SNOMED Code(s): 68800063 Comment: - Continue amlodipine, BP stable (3) OAB (overactive bladder) Code(s): N32.81 - OVERACTIVE BLADDER SNOMED Code(s): 183752186 Comment: - continue vesicare Status and Disposition: Stable/progressing. Remain inpatient per ortho.
[2017-10-19] MEDS: oxyCODONE TAB* 5 MG TAB PO PRN (21:22)
[2017-10-20] MEDS: oxyCODONE/Acetamin 5/325 MG* TAB PO PRN ×5 (03:01→21:18)
[2017-10-20 05:34] LABS: Hematocrit 31 % (35-47); Hemoglobin 10.8 g/dl (12.0-16.0); Mean Platelet Volume 7 um3 (7.4-10.4); Platelet Count 198 10^3/ul (150-450)
[2017-10-20 05:37] LABS: INR 1.45 (0.77-1.02)
[2017-10-20] MEDS: Magnesium Hydroxide LIQ* 30 ML UDC PO SCH ×2 (08:08→20:26)
[2017-10-20] MEDS: Docusate CAP* 100 MG PO SCH ×2 (08:09→21:19)
[2017-10-20] MEDS: Vitamin THERAPEUTIC TAB PO SCH (08:09)
[2017-10-20] MEDS: Magnesium Oxide TAB* 400 MG PO SCH (08:09)
[2017-10-20] MEDS: Ascorbic Acid TAB* 500 MG PO SCH (08:10)
[2017-10-20] MEDS: Enoxaparin(*) 30 MG/0.3 ML SYR SUBCUT SCH (11:11)
--- NOTE | 2017-10-20 12:57 | PN ---
Progress Note - Progress Note Date of Service: 10/20/17 SOAP: Subjective: []Patient seen at bedside. She feels well, pain is tolerable. Denies CP, SOB, dizziness, nausea or leg numbness. Objective: [] Vital Signs Temp 98.7 F 10/20/17 11:30 Pulse 80 10/20/17 11:30 Resp 18 10/20/17 12:15 BP 129/50 10/20/17 11:30 Pulse Ox 95 10/20/17 11:30 Intake & Output 10/19/17 10/20/17 10/20/17 18:59 06:59 18:59 Intake Total 2408 630 600 Output Total 1400 1300 1200 Balance 1008 -670 -600 Intake: IV Fluids 1078 ABX - CLINDAMYCIN 105 LR 973 Oral 1330 630 600 Output: Urine 1400 1300 1200 Laboratory Last Values Hgb 10.8 g/dl (12.0-16.0) L 10/20/17 05:10 Hct 31 % (35-47) L 10/20/17 05:10 Plt Count 198 10^3/ul (150-450) 10/20/17 05:10 MPV 7 um3 (7.4-10.4) L 10/20/17 05:10 INR (Anticoag Therapy) 1.45 (0.77-1.02) H 10/20/17 05:10 Sodium 136 mmol/L (133-145) 10/19/17 04:48 Potassium 4.5 mmol/L (3.5-5.0) 10/19/17 04:48 Chloride 104 mmol/L (101-111) 10/19/17 04:48 Carbon Dioxide 27 mmol/L (22-32) 10/19/17 04:48 Anion Gap 5 mmol/L (2-11) 10/19/17 04:48 BUN 15 mg/dL (6-24) 10/19/17 04:48 Creatinine 0.67 mg/dL (0.51-0.95) 10/19/17 04:48 Est GFR ( Amer) 114.3 (>60) 10/19/17 04:48 Est GFR (Non-Af Amer) 88.9 (>60) 10/19/17 04:48 BUN/Creatinine Ratio 22.4 (8-20) H 10/19/17 04:48 Glucose 116 mg/dL (70-100) H 10/19/17 04:48 Calcium 8.6 mg/dL (8.6-10.3) 10/19/17 04:48 General: Well appearing, NAD. Calm and cooperative RLE: Dressing changed by Dr Dawson this morning without complication. Dressing CDI without surrounding erythema. DF/PF intact. 2+ DP pulse. Sensation intact to light touch distally. BL LE: Calves supple and nontender without erythema, edema or palpable cords. Assessment: []POD 2 S/P right total hip replacement 10/18/17, Dr Dawson Plan: []WBAT PT/OT Hip precautions Lovenox, coumadin 4 mg today DC tomorrow
[2017-10-20] MEDS ORDERED: Warfarin TAB(*) 4 MG PO ONE (17:00)
--- NOTE | 2017-10-20 17:12 | PN ---
Subjective Date of Service: 10/20/17 Interval History: Ms. Turk states that she is feeling quite well today and is hopeful for discharge tomorrow. Objective Active Medications: Acetaminophen (Tylenol Tab*) 650 mg PO Q4H PRN Amlodipine Besylate (Norvasc Tab*) 2.5 mg PO QPM [facility] Ascorbic Acid (Vitamin C Tab*) 1,000 mg PO QAM [facility] Bisacodyl (Dulcolax Supp*) 10 mg HI DAILY PRN Calcium Carbonate (Tums*) 500 mg PO QPM [facility] Cyclobenzaprine HCl (Flexeril Tab*) 10 mg PO TID PRN Diphenhydramine HCl (Benadryl Iv*) 25 mg IV Q6H PRN Docusate Sodium (Colace Cap*) 100 mg PO BID [facility] Enoxaparin Sodium (Lovenox(*)) 30 mg SUBCUT Q24H [facility] Lactated Ringer's (Lactated Ringers 1000 Ml Bag*) 1,000 mls @ 100 mls/hr IV PER RATE [facility] Ketorolac Tromethamine (Toradol Inj*) 15 mg IV Q6H PRN Magnesium Hydroxide (Milk Of Magnesia Liq*) 30 ml PO BID [facility] Magnesium Hydroxide (Milk Of Magnesia Liq*) 30 ml PO Q6H PRN Magnesium Oxide (Magox 400 Tab*) 400 mg PO QAM [facility] Morphine Sulfate (Morphine Inj (Syringe)*) 2 mg IV Q2H PRN Multivitamins (Theragran Tab*) 1 tab PO DAILY [facility] Ondansetron HCl (Zofran Inj*) 4 mg IV Q6H PRN Oxycodone HCl (Roxycodone Tab*) 10 mg PO Q4H PRN Oxycodone/Acetaminophen (Percocet 5/325 Tab*) 2 tab PO Q4H PRN Oxycodone/Acetaminophen (Percocet 5/325 Tab*) 1 tab PO Q4H PRN Pharmacy Profile Note (Scopolamine Patch Remove*) 1 note PATCH OFF ONCE ONE Pharmacy Profile Note (Coumadin Daily Reminder*) 1 note FOLLOW UP 1700 [facility] Solifenacin (Vesicare(Nf)) 10 mg PO QPM [facility] Vital Signs: Temp Pulse Resp BP Pulse Ox 98.1 F 84 16 136/63 96 10/20/17 16:00 10/20/17 16:00 10/20/17 16:00 10/20/17 16:00 10/20/17 16:00 Oxygen Devices in Use Now: None Appearance: Female lying in bed in NAD Eyes: No Scleral Icterus Ears/Nose/Mouth/Throat: Mucous Membranes Moist Neck: Trachea Midline Respiratory: Symmetrical Chest Expansion and Respiratory Effort, Clear to Auscultation Cardiovascular: NL Sounds; No Murmurs; No JVD, No Edema Abdominal: NL Sounds; No Tenderness; No Distention Lymphatic: No Cervical Adenopathy Extremities: No Edema Skin: No Rash or Ulcers Neurological: Alert and Oriented x 3, NL Muscle Strength and Tone Nutrition: Taking PO's Result Diagrams: 10/20/17 05:10 10/19/17 04:48 Assess/Plan/Problems-Billing Assessment: Ms. Turk is a 62 yo F with a PMH of hypertension and hyperlipidemia who was admitted on 10/18/17 for right total hip arthroplasty. - Patient Problems (1) Osteoarthritis of right hip Code(s): M16.11 - UNILATERAL PRIMARY OSTEOARTHRITIS, RIGHT HIP Comment: - POD2 - POC as per ortho, pain control, OOB with hip precautions, PT/OT - DVT prophy with coumadin bridge (2) Hypertension Comment: - Continue amlodipine, BP stable (3) OAB (overactive bladder) Comment: - continue vesicare Status and Disposition: Stable/progressing. Remain inpatient per ortho.
[2017-10-20] MEDS: Calcium Carbonate CHEW TAB* 500 MG (TUMS) PO SCH (17:17)
[2017-10-20] MEDS: amLODIPine TAB* 5 MG PO SCH (17:17)
[2017-10-20] MEDS: CMCS Solifenacin(NF) 5 MG TAB PO SCH (17:19)
[2017-10-21] MEDS: oxyCODONE/Acetamin 5/325 MG* TAB PO PRN ×2 (03:50→08:15)
[2017-10-21] MEDS ORDERED: Scopolamine PATCH Remove* 1 NOTE MISC PATCH OFF ONE (06:00)
[2017-10-21 06:16] LABS: Hematocrit 32 % (35-47); Hemoglobin 11.2 g/dl (12.0-16.0); Mean Platelet Volume 7 um3 (7.4-10.4); Platelet Count 202 10^3/ul (150-450)
[2017-10-21 06:21] LABS: INR 1.52 (0.77-1.02)
[2017-10-21] MEDS: Magnesium Hydroxide LIQ* 30 ML UDC PO SCH (07:30)
[2017-10-21 07:56] VITALS: BP 158/85
[2017-10-21] MEDS: Magnesium Oxide TAB* 400 MG PO SCH (08:15)
[2017-10-21] MEDS: Docusate CAP* 100 MG PO SCH (08:15)
[2017-10-21] MEDS: Vitamin THERAPEUTIC TAB PO SCH (08:15)
[2017-10-21] MEDS: Ascorbic Acid TAB* 500 MG PO SCH (08:15)
[2017-10-21] MEDS: Enoxaparin(*) 30 MG/0.3 ML SYR SUBCUT SCH (11:05)
[2017-10-21] MEDS: oxyCODONE TAB* 5 MG TAB PO PRN (11:42)
--- NOTE | 2017-10-24 14:03 | DS ---
DISCHARGE SUMMARY: DATE OF ADMISSION: 10/18/17 DATE OF DISCHARGE: 10/21/17 CHIEF COMPLAINT: 1. Right hip osteoarthritis. 2. Hypertension. 3. Overactive bladder. 4. Hyperlipidemia. PROCEDURE: Right total hip arthroplasty. CONSULTATIONS: Physical Therapy, Occupational Therapy and Medicine. BRIEF HISTORY: Ms. Turk is a 62-year-old female with complaints of right hip pain secondary to en d-stage osteoarthritis. She failed conservative management and elected to proceed with a right total hip arthroplasty on 10/18/[address] Dawson. HOSPITAL COURSE: Ms. Turk was admitted to [facility] on 10/18/17. She underwent a rig t total hip arthroplasty. Postoperatively, she recovered on the short stay surgical unit on postoper ative day 1. Her Reyes catheter was removed and she was able to urinate on her own. She advanced to regular diet without difficulty and pain was well controlled with p.o. Percocet and she was restarte d on home medications. Lab and vital signs have remained stable. She was able to bear weight as domonique erated on her right lower extremity. She advanced appropriately with physical therapy and occupation al therapy. DVT prophylaxis was managed with Lovenox and Coumadin until she reach therapeutic INR. On postop day 2, she still had significant pain and so she was kept overnight one more night. By pos top day 3, she was orthopedically and medically stable for discharge to home with services. PHYSICAL EXAMINATION: General: She is well-nourished, well-developed, in no acute distress. She is alert and oriented x3. Her vital signs on day of discharge is temperature 97.3, pulse rate 85, resp iratory rate 16, oxygen saturation 95%, blood pressure 158/85. Extremities: Examination of the [facility] t lower extremity demonstrates a surgical incision on the posterior aspect of her hip. The incision was noted to be benign without erythema, drainage or visible clinical signs of infection. Dry steril e dressing was applied. She has active ankle dorsiflexion and plantar flexion. She is able to wiggl e her toes and able to move her knee slightly with some pain. She has 2+ palpable DP pulses. Sensat ion is intact to light touch distally. LABORATORY DATA: On the date of discharge, hemoglobin 11.2, hematocrit 32. INR 1.52. RADIOGRAPHS: Postoperative radiographs demonstrate right total hip arthroplasty with satisfactory pr osthesis placement and no acute bony abnormalities. DISCHARGE MEDICATIONS: 1. Oxycodone/acetaminophen 5/325 mg 1 tablet every 4 hours as needed for pain. 2. Ascorbic acid 1000 mg orally daily. 3. Krill oil softgel 1000 mg daily. 4. Vitamin D 1200 international units daily. 5. Magnesium oxide 400 mg daily. 6. Garlic 1 mg twice daily. 7. Amlodipine 2.5 mg daily. 8. Tums 500 mg orally every evening. CONDITION ON DISCHARGE: Stable. DISCHARGE INSTRUCTIONS: Ms. Turk is a 62-year-old female on postoperative day 3, status post righ t total hip arthroplasty which was uncomplicated. She is orthopedically and medically stable for dis charge to home with services. Her labs and vital signs are stable. She will restart her home medica tions. She will take 4 mg Coumadin on Tuesday, 2 mg on Tuesday, and 2 mg on Tuesday and we will reche ck INR on Tuesday. She will have INR draws on Tuesday and with home nursing services. She wi ll remain weightbearing as tolerated on her right lower extremity. She will have home physical therap y twice a week. She will take Percocet for pain control and will take Colace up to 3 times a day for constipation. She will follow up with Dr. Dawson in 10 to 14 days for incision check and suture marcial alberto. She was instructed to go to the ER if she develop chest pain or shortness of breath and she ethan uld call our office should she develop fever, increasing pain, or increasing redness around her incis ion site. GEO BERRY [id number]/[facility] #: [id number]
== END 2017-10-21 12:10 | disposition home health service (06) | DRG 301 ==
LOC: AA 07:01 → SSU 13:24
PROVIDERS: ADMIT Orthopaedic Surgery Adult Reconstructive Orthopaedic Surgery; ATTEND Orthopaedic Surgery Adult Reconstructive Orthopaedic Surgery
PROC: 0SR904A Replacement of Right Hip Joint with Ceramic on Polyethylene Synthetic Substitute, Uncemented, Open Approach (ICD-10-PCS; principal; 2017-10-18 09:00)
DX: M16.11 Unilateral primary osteoarthritis, right hip (principal); Z96.642 Presence of left artificial hip joint; E78.00 Pure hypercholesterolemia, unspecified; I10 Essential (primary) hypertension; N32.81 Overactive bladder; M81.0 Age-related osteoporosis without current pathological fracture; M25.751 Osteophyte, right hip; Z82.49 Family history of ischemic heart disease and other diseases of the circulatory system; Z83.3 Family history of diabetes mellitus; Z80.8 Family history of malignant neoplasm of other organs or systems; Z72.89 Other problems related to lifestyle
CPT/HCPCS: 36415; 80048; 85014; 85018; 85049; 85610; A9270-GY; C1713; C1776; J0690; J0780; J1100; J1650; J1885; J2250; J2405; J2704; J3010

== ENCOUNTER → 2018-10-20 20:05 | Emergency (ER) | payer BC ==
[~2018-10-20 20:05] MED LIST changes: -Buffered Lidocaine 0.9% SYRIN* 5 ML/SYR SYRINGE INTRADERM ONE; -DiMENhydriNATE IV* 50 MG/ML VIAL IV PUSH PRN; +Erythromycin OPTH OINT* APPLIC OINT ONE; +Erythromycin TOPICAL GEL* 30 GM TUBE TOPICAL ONE; -Famotidine IV* 10 MG/ML 2 ML (20 mg) IV ONE; -Gabapentin CAP(*) 300 MG PO ONE; -Morphine INJ* 2 MG/ML 1 ML CARPUJECT IV PRN; -Naloxone* 0.4 MG/ML 1 ML VIAL IV PRN; -PROCHLORPERAZINE INJ 5 MG/ML 2 ML VIAL IV PRN; -Scopolamine 1.5 mg* PATCH TRANSDERM ONE; -fentaNYL* 50 MCG/ML 2 ML VIAL (100 MCG VIAL) IV PRN
[2018-10-20 20:18] VITALS: BP 149/91
--- NOTE | 2018-10-20 21:28 | ED ---
Throat Pain/Nasal Congestion - HPI Summary HPI Summary: 63-year-old female presents with drainage and erythema of left eye today. She denies any injury. No pain. She states it is not itchy. Denies any issues with the right eye. She wears glasses but does not wear contacts. No blurry vision. No headache. No sinus congestion. Has not tried anything for her symptoms. Denies any foreign body in the eye. - History of Current Complaint Chief Complaint: EDEyeProblem Time Seen by Provider: 10/20/18 21:14 - Allergies/Home Medications Allergies/Adverse Reactions: Allergies Allergy/AdvReac Type Severity Reaction Status Date / Time No Known Allergies Allergy Verified 10/07/17 11:10 PMH/Surg Hx/FS Hx/Imm Hx Endocrine/Hematology History: Denies: Hx Diabetes Cardiovascular History: Reports: Hx Hypertension Denies: Hx Pacemaker/ICD Respiratory History: Denies: Hx Asthma, Other Respiratory Problems/Disorders GI History: Reports: Other GI Disorders - PARATHYROID DISEASE History: Reports: Other Problems/Disorders - OVERACTIVE BLADDER WITH LEAKAGE URGE INCONT Denies: Hx Renal Disease Musculoskeletal History: Reports: Hx Arthritis - HIPS, BILAT THUMB, Other Musculoskeletal History - SCIATIC Denies: Hx Osteoporosis Sensory History: Reports: Hx Cataracts - DIANA, MILD, Hx Contacts or Glasses - GLASSES, Hx Hearing Aid - BOTH EARS Opthamlomology History: Reports: Hx Cataracts - DIANA, MILD, Hx Contacts or Glasses - GLASSES Neurological History: Denies: Other Neuro Impairments/Disorders Psychiatric History: Denies: Hx Panic Disorder - Cancer History Hx Chemotherapy: No Hx Radiation Therapy: No - Surgical History Surgery Procedure, Year, and Place: ,LEFT SHOULDER re-location with screw, right wrist surgery, LEFT HIP, THYROID Hx Anesthesia [facility]actions: Yes [facility] Infectious Disease History: No Infectious Disease History: Denies: Traveled Outside the [place] in Last 30 Days - Family History Known Family History: Positive: None - Social History Alcohol Use: Rare Alcohol Amount: [place] Substance Use Type: Reports: None Smoking Status (MU): Never Smoked Tobacco Have You Smoked in the Last Year: No Review of Systems Negative: Fever Positive: Drainage, Erythema Negative: Sore Throat Negative: Chest Pain Negative: Shortness Of Breath All Other Systems Reviewed And Are Negative: Yes Physical Exam Triage Information Reviewed: Yes Vital Signs On Initial Exam: Initial Vitals Temp Pulse Resp BP Pulse Ox 97.8 F 95 20 149/91 96 10/20/18 20:14 10/20/18 20:14 10/20/18 20:14 10/20/18 20:14 10/20/18 20:14 Vital Signs Reviewed: Yes Appearance: Positive: Well-Appearing Skin: Positive: Warm, Dry Head/Face: Positive: Normal Head/Face Inspection Eyes: Positive: EOMI, BENITO, Conjunctiva Inflammed - left eye, Discharge - yellow discharge left eye ENT: Positive: Pharynx normal, TMs normal Respiratory/Lung Sounds: Positive: Clear to Auscultation, Breath Sounds Present Cardiovascular: Positive: Normal, RRR Musculoskeletal: Positive: Normal Neurological: Positive: Normal Psychiatric: Positive: Normal Diagnostics - Vital Signs Vital Signs Temp Pulse Resp BP Pulse Ox 10/20/18 20:14 97.8 F 95 20 149/91 96 - Laboratory Lab Statement: Any lab studies that have been ordered have been reviewed, and results considered in the medical decision making process. EENT Course/Dx - Course Course Of Treatment: 63-year-old female presents with drainage and erythema of left eye today. She denies any injury. No pain. She states it is not itchy. Denies any issues with the right eye. She wears glasses but does not wear contacts. No blurry vision. No headache. No sinus congestion. Has not tried anything for her symptoms. Denies any foreign body in the eye. On exam conjunctivia injected with yellow discharge present. Appears most consistent with conjunctivitis. Will treat with erythromycin. Patient understands agrees with plan. - Differential Diagnoses Differential Diagnoses: Conjunctivitis, Corneal Abrasion, URI/Bronchitis - Diagnoses Provider Diagnoses: Conjunctivitis Discharge - Sign-Out/Discharge Documenting (check all that apply): Patient Departure Patient Received Moderate/Deep Sedation with Procedure: No - Discharge Plan Condition: Good Disposition: HOME Patient Education Materials: Conjunctivitis (ED) Referrals: Cameron Kent MD [Primary Care Provider] - Danilo Gutiérrez MD [Medical Doctor] - Additional Instructions: apply ribbon four times a day for 7 days Wash hands after touching eye Follow up with ophthalmology if no improvement Return to ED if develop any new or worsening symptoms - Billing Disposition and Condition Condition: GOOD Disposition: Home
--- NOTE | 2018-10-22 09:36 | PN ---
Progress Note - Progress Note Date of Service: 10/20/18 Note: EYE culture preliminary grew Haemophilus influenza Patient was placed on erythromycin ointment prior to discharge This will likely cover organism Nothing further this time
== END | disposition home or self-care (01) ==
LOC: ED 20:05
DX: H10.32 Unspecified acute conjunctivitis, left eye (principal); B96.3 Hemophilus influenzae [H. influenzae] as the cause of diseases classified elsewhere
CPT/HCPCS: 87070; 87077; 87185; 87186; 87205; 99282; A9270-GY